=== PATIENT | female | born 1950 | race African-American/Black ===

== ENCOUNTER 2016-09-15 10:54 | Inpatient (IN) | payer BC, MEDICARE ==
[~2016-09-15] VITALS: Ht 162.6 cm; Wt 113.4 kg
[~2016-09-15 10:54] MED LIST: BAYER CHEWABLE81 MG PO; DIOVAN HCT 80-11 TAB PO; OMNICEF300 MG PO; PHENERGAN25 M1 PO; PHENERGAN25 MG RC; PREDNISONE; PROTONIX40 MG PO; ZOFRAN4 MG PO
[2016-09-15 11:28] LABS: BASOPHILS 0.1 % (0.0-2.0); EOSINOPHILS 0 % (0-7); HEMATOCRIT 40.4 % (36.0-48.0); HEMOGLOBIN 13.5 g/dL (12-16); IMMATURE GRANULOCYTES 0.6 % (0-5); LYMPHOCYTES 20.4 % (15-50); MCHC 33.4 g/dL (31.0-37.0); MCV 89.8 fL (80.0-100.0); MEAN PLATELET VOLUME 10.1 fL (7.4-10.4); MONOCYTES 5.2 % (2-11); NEUTROPHILS 73.7 % (40-80); PLATELET COUNT 243 10x3/uL (130-400); RDW 13.3 % (11.5-14.5); WBC 11.2 10x3/uL (4.8-10.8)
[2016-09-15 11:46] LABS: ALKALINE PHOSPHATASE 60 U/L (46-116); ALT (SGPT) 25 U/L (10-68); CALC OSMOLALITY 282 mosm/kg (275-300); CALCIUM 9.8 mg/dL (8.5-10.1); CARBON DIOXIDE 29.3 mmol/L (21.0-32.0); CHLORIDE - SERUM 103 mmol/L (98-107); CREATININE - SERUM 0.8 mg/dL (0.6-1.3); GLUCOSE 122 mg/dL (74-106); POTASSIUM - SERUM 3.7 mmol/L (3.5-5.1); PROTEIN - SERUM 8.9 g/dL (6.4-8.2); SODIUM 141 mmol/L (136-145); UREA NITROGEN 14 mg/dL (7-18); eGFR NON AFRICAN AMERICAN 76 mL/min (90-120)
[2016-09-15 14:59] LABS: APPEARANCE CLEAR (CLEAR); BILIRUBIN NEGATIVE (NEGATIVE); COLOR YELLOW (YELLOW); GLUCOSE NEGATIVE (NEGATIVE); KETONE NEGATIVE (NEGATIVE); LEUKOCYTE ESTERASE NEGATIVE (NEGATIVE); NITRITE NEGATIVE (NEGATIVE); PROTEIN 1+ mg/dL (NEGATIVE); SPECIFIC GRAVITY 1.025 (1.005-1.020); UROBILINOGEN NORMAL (NORMAL)
[2016-09-15] MEDS ORDERED: PREDNISONE10 MG PO (16:57)
[2016-09-15] MEDS ORDERED: DIOVAN80 MG PO (17:00)
[2016-09-15] MEDS ORDERED: HYDROCHLOROTHIA25 MG PO (17:00)
--- NOTE | 2016-09-15 19:40 | NUR ---
PATIENT RESTING IN BED WITH GUESTS AT BEDSIDE AND STATED HER PAIN IS 9/10. BROUGHT PATIENT AN ICEPACK. PATIENT DENIES OTHER NEEDS AT THIS TIME. BED IN LOWEST POSITION AND CALL LIGHT WITHIN REACH. ENCOURAGED PATIENT TO CALL IF SHE HAS OTHER NEEDS.
--- NOTE | 2016-09-15 20:18 | NUR ---
PATIENT IS LAYING ON HER LEFT SIDE. SHE STATED SHE FEELS BEST LAYING ON HER LEFT SIDE. PATIENT STATED SHE IS UNABLE TO LAY ON HER RIGHT SIDE. AND CAN HARDLY STAND TO LAY ON HER BACK. SHE HAS A VISIBLE HERNIA ON HER RIGHT SIDE OF HER ABD.
[2016-09-15 20:35] VITALS: BP 150/55; BMI 41.8
--- NOTE | 2016-09-15 20:44 | NUR ---
PATIENT IS AWAKE, ALERT AND ORIENTED X'S 4. RESPIRATIONS ARE EVEN AND UNLABORED ON ROOM AIR. PATIENT HAS AN NGT TO RIGHT NARE, HOOKED TO LIWS. THERE IS A SMALL AMOUNT OF PINK DRAINAGE IN THE CANESTER. PATIENT STATED SHE HAD ORAL CONTRAST TODAY. PATIENT STATED THAT ANOTHER NURSE AND HAS ALREADY LOOKED AT HER NGT AND ADVANCED IT. SHE STATED SHE HAS NOT HAD ANY EMESIS, ONLY NAUSEA. SHE STATED SHE IS NOT NAUSEOUS AT THIS TIME BECAUSE SHE HAS HAD ZOFRAN.
[2016-09-16] VITALS: BP 139/46
--- NOTE | 2016-09-16 01:54 | NUR ---
GAVE ZOFRAN IVP PER PRN ORDER FOR C/O NAUSEA. WILL MONITOR FOR EFFECTIVENESS.
[2016-09-16 04:00] VITALS: BP 148/51
--- NOTE | 2016-09-16 06:30 | HP ---
PATIENT: DONNIE BROWN MEDICAL RECORD: [id number] ACCOUNT: [id number] LOCATION:D.MS [id number] : 50 ADMISSION DATE: 09/15/16 HISTORY AND PHYSICAL EXAMINATION DATE OF ADMISSION: 09/15/2016 SURGEON: Martha Marks MD CHIEF COMPLAINT: Abdominal pain and vomiting. HISTORY OF PRESENT ILLNESS: This is a 65-year-old female, who presents with a 1 day history of acute onset of abdominal pain, nausea and vomiting. The patient states the pain is located around her umbilicus. It is sharp and stabbing in nature. The pain has been constant. It fluctuates in intensity. Currently, she is a 7 out of 10. She denies any hematemesis. She denies any fever or chills. Denies any melena or hematochezia. The patient has a history of colon cancer and resection several years ago. PAST MEDICAL HISTORY: Hypertension, coronary artery disease, DVT, reactive airway disease, acid reflux, and arthritis. PAST SURGICAL HISTORY: Colon resection, cholecystectomy, port placement, and cardiac catheterization. FAMILY HISTORY: Diabetes and cardiovascular disease in her parents. SOCIAL HISTORY: She denies any history of alcohol or drug use, denies any history of smoking. ALLERGIES: CONTRAST, SHELLFISH AND CLARITHROMYCIN. HOME MEDICATIONS: Include aspirin, hydrochlorothiazide, Protonix, prednisone and valsartan. REVIEW OF SYSTEMS: A 12-point review of systems was obtained, pertinent positive and negative as per the HPI. PHYSICAL EXAMINATION: VITAL SIGNS: Temperature 98.2, pulse rate 58, respiratory rate 18, blood pressure ____ on room air. GENERAL: This is an obese female, in moderate distress. PSYCHIATRIC: She is alert and oriented times 3 about. EYES: Extraocular muscles are intact. EAR, NOSE, AND THROAT: Normal dentition. CARDIOVASCULAR: She got decreased breath sounds bilaterally. ABDOMEN: Firm, it is moderately distended. She is tender to palpation at the umbilicus. There was a large hernia defect. It is nonreducible. There is no overlying skin changes. SKIN: Warm and dry with normal turgor. EXTREMITIES: She is neurovascularly intact with lower extremity edema. NEUROLOGIC: She has a GCS of 15 with no focal deficits. LABORATORY DATA: Shows a white count of 11,000, hemoglobin 13, hematocrit 40 and platelet count ____. Chemistry within normal limits. Liver function tests HISTORY AND PHYSICAL [id number] KEVIN,DONNIE within normal limits. IMAGING: Chest x-ray images were reviewed that shows the NG tube at the level of the GE junction. CT of the abdomen and pelvis images were personally reviewed. There is no official report. The patient has a large hernia with multiple loops of small bowel. The proximal small bowel was dilated. Distal small bowel was decompressed, consistent with bowel obstruction. IMPRESSION: A 65-year-old female with irreducible incisional hernia and small-bowel obstruction. PLAN: 1. Admit to med-surg, Dr. Marks. 2. IV fluid resuscitation. 3. N.p.o. 4. NG tube decompression. 5. Flynn catheter placement to monitor I's and O's. 6. Serial abdominal exams. IV narcotics for pain control, IV antiemetics. We will consult Dr. Vela, at the patient's request, who is her primary care physician. TRANSINT:[id number] Voice Confirmation ID: [id number] DOCUMENT ID: [id number] MARTHA MARKS MD at 0630 CC: [id number] DICTATION DATE: 09/15/162225 COMPLAINT INVESTIGATIONS OFFICER: 09/16/16 0015 ADM IN [id number] [place] [address]
--- NOTE | 2016-09-16 07:55 | NUR ---
PATIENT RECEIVED IN LEFT LATERAL POSITION RESTING QUIETLY. RESPIRATIONS EVEN AND UNLABORED. FAMILY PRESENT AT BEDSIDE. SIDE RAILS UP X2. BED IN LOW POSITION. CALL LIGHT IN REACH.
--- NOTE | 2016-09-16 08:20 | NUR ---
PT AWAKE AND ALERT IN BED NO ACUTE DISTRES NOTED HAS PAIN MGMT NOTED VIA MOTTLER OPERATOR MORPHINE WILL REQUEST BOLUS MEDS NEEDED. NGT NOTED TO LIS WITH GREEN LIQUID NOTED TO TUBING LUNGS CLEAR BIALTERALLY. BSA TO LEFT UPPER AND LOWER QUADS SILENT IN RIGHT UPPER AND LOWER QUADS.
[2016-09-16 08:47] VITALS: BP 156/73
--- NOTE | 2016-09-16 10:45 | NUR ---
PT PREOP MEDS GIVEN TO PT AND PT TRANSFERRED TO OR VIA BED WITH SURGERY TEAM.
[2016-09-16 12:41] VITALS: Ht 162.6 cm; Wt 113.4 kg
--- NOTE | 2016-09-16 13:13 | NUR ---
NO SCDS DUE TO HISTORY OF DVTS, AFIA.
--- NOTE | 2016-09-16 13:41 | NUR ---
Patient Name: DONNIE BROWN Admission Status: ER Accout number: [id number] Admission Date: 09-15-2016 : 1950 Admission Diagnosis: Attending: PARISH Current LOS: 1 Anticipated DC Date: 09-22-2016 Planned Disposition: Home with Home Health Primary Insurance: [employer] [facility] Discharge Planning Comments: CM MET WITH PATIENT WITH D/C NEEDS AND PLANS. PATIENT STATED SHE HAS 3 STEPS TO ENTER HER HOME. PATIENTS DAUGHTER (FRANCOIS VACA) LIVES WITH HER AND WILL DRIVE HER HOME AT DISCHARGE. PATIENT STATED SHE IS INDEPENDENT WITH HER CARE AND HAS A CANE, WALKER, SHOWER CHAIR, BS COMMODE, AND WHEELCHAIR THAT ARE AVAILABLE IF NEEDED. PATIENTS PCP IS DR. HERNÁNDEZ AND PHARMACY IS [facility] ON [address]. PATIENT STATED IF HOME HEALTH IS NEEDED SHE WILL USE [facility]. CM WILL CONTINUE TO FOLLOW PATIENT WITH D/C NEEDS AND PLANS. PCP DR. HERNÁNDEZ [facility] ON [address]- [phone] FRANCOIS VACA (DAUGHTER) [phone] ROSA MARIA BROWN (FATHER) [phone] Technical Services Representative: Denise Puente Is the patient Alert and Oriented? Yes 0 * How many steps to enter\exit or inside your home? 2 W/RAILS 0 * PCP DR. HERNÁNDEZ 0 * Pharmacy [facility] 0 * Preadmission Environment Home with Family 0 * ADLs Independent 0 * Equipment Bedside Commode Cane Shower Chair Walker Wheelchair 0 * List name and contact numbers for known caregivers / representatives who currently or will assist patient after discharge: FRANCOIS VACA ([phone]) ROSA MARIA BROWN (FATHER) [phone] 0 * Community resources currently utilized None 0 * Additional services required to return to the preadmission environment? Yes 0 * Can the patient safely return to the preadmission environment? Yes 0 * Has this patient been hospitalized within the prior 30 days at any hospital? No 0 Grand Total: 0
[2016-09-16 16:58] VITALS: BP 142/69
--- NOTE | 2016-09-16 17:20 | NUR ---
RECIEVED FROM PACU VIA BED AWAKE AND ALERT ORINETED X3 NGT INPLACE LAYNE PATENT TO CLEAR YELLOW URINE. ABDOMINAL BINDER IN PLACE DRESSING WITH MINIMAL DRAINAGE NOTED
[2016-09-16 20:00] VITALS: BP 129/63; BP 138/70
--- NOTE | 2016-09-16 20:22 | NUR ---
PT RECEIVED RESTING IN BED WITH EYES OPEN, FAMILY VISITORS AT BEDSIDE. LUNG SOUNDS CLEAR BILATERALLY. RESP EVEN AND UNLABORED. ABD BINDER IN PLACE. PT REFUSES SCD'S. LAYNE IN PLACE, CLEAR YELLOW RETURN. PT CURRENTLY NPO. PT DENIES NEEDS AT THIS TIME. CALL LIGHT IN PT REACH.
--- NOTE | 2016-09-16 22:29 | NUR ---
PT IS ASLEEP WITH EASY RESPIRATIONS. SHE HAS AN NG TUBE IN PLACE WHICH IS DRAINING GREEN BILE. THERE IS NO DISTRESS NOTED. THE FAMILY MEMBER IS ASLEEP AT THE BEDSIDE AND THE LIGHTS ARE OFF. THE BED IS LOW, RAILS UP X'S 2 WITH THE CALL LIGHT AT HAND.
--- NOTE | 2016-09-16 22:38 | NUR ---
PT RESTING IN BED WITH EYES CLOSED. PT CONTINUES TO REFUSED SCD'S. NO S/S OF DISTRES NOTED AT THIS TIME. RESP EVEN AND UNLABORED. CALL LIGHT IN PT REACH.
[2016-09-17] VITALS (9 sets, daily range): BP systolic 127–147; BP diastolic 62–85
--- NOTE | 2016-09-17 00:30 | NUR ---
PT RESTING IN BED WITH EYES CLOSED AT THIS TIME. NO S/S OF DISTRESS. RESP ARE EVEN AND UNLABORED. O2 IN PLACE @ 2L PER NC. PT FAMILY MEMBER AT BED SIDE ASLEEP. CALL LIGHT IN PT REACH.
--- NOTE | 2016-09-17 02:04 | NUR ---
PT RESTING IN BED WITH EYES CLOSED. NO S/S OF DISTRESS NOTED. RESP EVEN AND UNLABORED. FAMILY MEMBER AT BEDSIDE SLEEPING. PT REMAINS NPO, NG SUCTION IN PLACE. CALL LIGHT IN REACH.
--- NOTE | 2016-09-17 04:18 | NUR ---
PT RESTING IN BED WITH EYES CLOSED. NO S/S OF DISTRESS NOTED AT THIS TIME. RESP EVEN AND UNLABORED. PT AROUSES TO VERBAL STIMULI. DENIES NEEDS AT THIS TIME. CONTINUES WITH NG SUCTION. CALL LIGHT IN PT REACH.
[2016-09-17 05:07] LABS: BASOPHILS 0 % (0.0-2.0); EOSINOPHILS 0 % (0-7); HEMATOCRIT 37.9 % (36.0-48.0); HEMOGLOBIN 12.1 g/dL (12-16); IMMATURE GRANULOCYTES 0.4 % (0-5); LYMPHOCYTES 16.4 % (15-50); MCH 29.4 pg (26.0-34.0); MCHC 31.9 g/dL (31.0-37.0); MEAN PLATELET VOLUME 9.8 fL (7.4-10.4); MONOCYTES 10.1 % (2-11); NEUTROPHILS 73.1 % (40-80); PLATELET COUNT 204 10x3/uL (130-400); RBC 4.12 10x6/uL (4.00-5.40); RDW 13.9 % (11.5-14.5)
[2016-09-17 05:14] LABS: WBC 7.4 10x3/uL (4.8-10.8)
[2016-09-17 05:38] LABS: ANION GAP 10.8 mmol/L (8-16); CALCIUM 8.4 mg/dL (8.5-10.1); CARBON DIOXIDE 27.1 mmol/L (21.0-32.0); CREATININE - SERUM 0.9 mg/dL (0.6-1.3); MAGNESIUM - SERUM 1.9 mg/dL (1.8-2.4); PHOSPHOROUS 3.2 mg/dL (2.5-4.9); POTASSIUM - SERUM 3.9 mmol/L (3.5-5.1)
--- NOTE | 2016-09-17 07:15 | NUR ---
PATIENT IN BED WITH IV INTACT. NO COMPLAINTS OR SIGNS OF DISTRESS. CALL LIGHT WITHIN REACH.
--- NOTE | 2016-09-17 08:09 | NUR ---
RESTING IN BED, DENIES NEEDS, BED LOWEST POSITION, CALL LIGHT IN REACH, SIDE RAILS UP X2
--- NOTE | 2016-09-17 13:35 | CN ---
PATIENT NAME:DONNIE BROWN MEDICAL RECORD: [id number] : 50 LOCATION:D.MS [id number] ADMIT DATE: 09/15/16 ACCOUNT: [id number] CONSULTING PHYSICIAN: VENUS HERNÁNDEZ MD REFERRING PHYSICIAN: MARTHA MARKS MD DATE OF CONSULTATION: 09/16/2016 DATE OF ADMISSION: 09/15/2016 CHIEF COMPLAINT: Abdominal pain and vomiting. HISTORY OF PRESENT ILLNESS: This is a 65-year-old female, who presented with a 1-day history of acute onset of abdominal pain, nausea and vomiting. She has a remote history of colon resections due to cancer. She has had a ventral hernia that really has not given her any problems until now. CT of the abdomen and pelvis showed a large ventral hernia with multiple loops of small bowel. The patient was admitted to Dr. Marks and I have been asked to see the patient in consultation for medical management. PAST MEDICAL AND SURGICAL HISTORY: Hypertension, mild coronary artery disease, DVT, acid reflux, and arthritis. She has had cataract surgery in 2008, partial colectomy in February 2009 for stage III colon cancer. She had chemotherapy for that, followed by Dr. Sanchez. She has had a laparoscopic cholecystectomy in 1997. CURRENT MEDICATIONS: Hydrochlorothiazide 25 mg once a day, hydralazine 25 mg once a day, valsartan 80 mg once a day, Protonix 40 mg once a day, and aspirin 81 mg once a day. ALLERGIES: BIAXIN AND SHELLFISH. SOCIAL HISTORY: She is . 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 HABITS: Never smoked. Alcohol use is rare. FAMILY HISTORY: Father's history is positive for coronary artery disease. Her mother just recently at age 83. She had several medical problems including dementia, including hypertension, diabetes and has had cancer in the past. REVIEW OF SYSTEMS: GENERAL: No major weight changes. HEENT: No particular sinus or allergy problems. RESPIRATORY: She has had some mild reactive airways disease. GASTROINTESTINAL: Colon cancer as above. She was seen by Dr. Vázquez and had colonoscopies done regularly. GENITOURINARY: No significant problems there. MUSCULOSKELETAL: No significant problems there. NEUROLOGIC: No migraines. No seizure activity. PSYCHIATRIC: No depression or melancholia. PHYSICAL EXAMINATION: VITAL SIGNS: Temperature 98.4, pulse 88, respirations 17, and blood pressure 138/70. CONSULT REPORT [id number] DONNIE BROWN GENERAL: She is awake and alert. She is postop now. She has NG tube in place. HEENT: Grossly within normal limits, otherwise. NECK: Supple. HEART: Regular rate and rhythm without murmur. LUNGS: Clear. ABDOMEN: With dressing in place. EXTREMITIES: Trace if any edema. LABORATORY WORK: Done upon admission, her white count was 11,200, hemoglobin 13.5, and hematocrit 40. Basic metabolic panel is all normal. Liver functions were all normal. DIAGNOSTIC DATA: Chest x-ray showed nasogastric tube in place, no acute cardiopulmonary process is evident. CT of the abdomen and pelvis without IV contrast shows findings concerning for: 1. Partial small-bowel obstruction related to midline abdominal wall hernia, containing small loops of bowel. 2. Sclerotic focus in the right pubic ramus, that is nonspecific, may be due to a bone island or prior trauma. IMPRESSION: 1. Hypertension. 2. Ventral hernia with bowel obstruction, now status post hernia repair and takedown of adhesions. PLAN: 1. We will monitor her blood pressure and other medical problems. 2. We will continue postoperative care. Thank you for the consult. At some point, we need to consider a bone scan for the abnormality on the pelvis. Other tests and procedures as warranted. TRANSINT:[id number] Voice Confirmation ID: [id number] DOCUMENT ID: [id number] VENUS HERNÁNDEZ MD at 1335 CC: [id number] DICTATION DATE: 09/16/16 2348 GIN CLERK: 09/17/16 0243 ADM IN [id number] [place] [address]
--- NOTE | 2016-09-17 14:55 | NUR ---
LAYNE DC'D, TIP AND BALLOON INTACT, TOLERATED WELL, DENIES NEEDS
--- NOTE | 2016-09-17 20:00 | NUR ---
PT RECEIVED SITTING UP IN CHAIR IN ROOM. FAMILY MEMBER AT BEDSIDE. PT IS ALERT AND ORIENTED X4. PT CONTINUES WTIH NG TUBE ON INTERMITTENT SUCTION. LUNG SOUNDS CLEAR BILATERALLY. RESPIRATIONS ARE EVEN AND UNLABORED. ABD BINDER IN PLACE. PT STATES NO BM SINCE BEFORE HAVING SURGERY. PT STATES PAIN IS CONTROLLED AT THIS TIME. PT STATES, "I HAD A HEADACHE EARLIER BUT THE MORPHINE HELPED." PT CONTINUES TO BE NPO. CALL LIGHT IN REACH.
[2016-09-18] VITALS (9 sets, daily range): BP systolic 118–158; BP diastolic 62–72
--- NOTE | 2016-09-18 00:25 | NUR ---
PT RESTING IN CHAIR WITH EYES CLOSED. NO S/S OF DISTRESS NOTED. RESP EVEN AND UNLABORED. PT CONTINUES NPO. CALL LIGHT IN REACH.
--- NOTE | 2016-09-18 01:35 | NUR ---
AWAKE SITTING UP IN THE CHAIR. NG TUBE IN PLACE AND WORKING. FAMILY MEMBER ASLEEP IN HER BED. NO COMPLAINTS VOICED. THE BED IS LOW, RAILS UP X'S 2 WITH THE CALL LIGHT AT HAND.
--- NOTE | 2016-09-18 02:04 | NUR ---
PT UP IN CHAIR RESTING IN WITH EYES CLOSED. NO S/S OF DISTRESS NOTED. RESP EVEN AND UNLABORED. AROUSES TO VERBAL STIMULI. CONTINUES WITH NG INTERMITENT SUCTION. CALL LIGHT IN PT REACH.
[2016-09-18 07:25] LABS: BASOPHILS 0.1 % (0.0-2.0); HEMATOCRIT 34.2 % (36.0-48.0); HEMOGLOBIN 10.7 g/dL (12-16); IMMATURE GRANULOCYTES 0.3 % (0-5); LYMPHOCYTES 19.4 % (15-50); MCH 29.3 pg (26.0-34.0); MCHC 31.3 g/dL (31.0-37.0); MCV 93.7 fL (80.0-100.0); MEAN PLATELET VOLUME 10.3 fL (7.4-10.4); MONOCYTES 8.1 % (2-11); NEUTROPHILS 70.1 % (40-80); PLATELET COUNT 194 10x3/uL (130-400); RBC 3.65 10x6/uL (4.00-5.40); RDW 14.1 % (11.5-14.5); WBC 7.1 10x3/uL (4.8-10.8)
[2016-09-18 07:38] LABS: CALC OSMOLALITY 283 mosm/kg (275-300); CALCIUM 8.2 mg/dL (8.5-10.1); CARBON DIOXIDE 26.8 mmol/L (21.0-32.0); CHLORIDE - SERUM 109 mmol/L (98-107); CREATININE - SERUM 0.7 mg/dL (0.6-1.3); GLUCOSE 104 mg/dL (74-106); POTASSIUM - SERUM 3.7 mmol/L (3.5-5.1); SODIUM 142 mmol/L (136-145); UREA NITROGEN 16 mg/dL (7-18); eGFR NON AFRICAN AMERICAN 89 mL/min (90-120)
--- NOTE | 2016-09-18 10:15 | NUR ---
Awake sitting up in chair, NGT to intermittent suctions with yellowish colored drainage. Abd. binder in place. Report slight nausea when she ambulated with PT, was able to amb 200 feet, passing flatus. Pain is managed
--- NOTE | 2016-09-18 17:39 | NUR ---
Sitting in recliner, NGT to intermittent suction. Pain level 2. No compliants.
[2016-09-19] VITALS: BP 152/67
--- NOTE | 2016-09-19 01:12 | NUR ---
ASSESSED AT THE BEGINNING OF THE SHIFT. PT IS ALERT AND ORIENTED, ABLE TO VERBALIZE NEEDS. HER SISTER IS REMAINING IN THE ROOM WITH HER. SHAS AN NG-TUBE TO LIS AND IT IS FUNCTIONING WELL. HER DRESSING TO THE MIDLINE INCISION OF THE ABD IS DRY AND INTACT WITH AN ABD BINDER OVER IT. SITTING UP IN THE CHAIR SEEMS TO BE MORE COMFORTABLE FOR HER. SHE WAS ASSISTED BY HER SISTER TO A WASH UP AND STATED IT MADE HER FEEL BETTER. HER CHAIR IS LOCKED AND SHE HAS THE CALL LIGHT AT HAND.
[2016-09-19 04:00] VITALS: BP 145/68
[2016-09-19 06:58] LABS: BASOPHILS 0.2 % (0.0-2.0); EOSINOPHILS 3.9 % (0-7); HEMATOCRIT 32.8 % (36.0-48.0); HEMOGLOBIN 10.4 g/dL (12-16); IMMATURE GRANULOCYTES 0.3 % (0-5); LYMPHOCYTES 25.9 % (15-50); MCH 29.5 pg (26.0-34.0); MCHC 31.7 g/dL (31.0-37.0); MCV 92.9 fL (80.0-100.0); MONOCYTES 7.8 % (2-11); NEUTROPHILS 61.9 % (40-80); PLATELET COUNT 178 10x3/uL (130-400); RBC 3.53 10x6/uL (4.00-5.40); RDW 13.9 % (11.5-14.5); WBC 5.9 10x3/uL (4.8-10.8)
--- NOTE | 2016-09-19 07:00 | NUR ---
REPORT RECIEVED ASSUMED CARE. PATIENT STANDING UP AT SINK CLEANING UP. FAMILY AT SIDE. CALL LIGHT WITHIN REACH.
[2016-09-19 07:20] LABS: CALC OSMOLALITY 287 mosm/kg (275-300); CALCIUM 8.1 mg/dL (8.5-10.1); CARBON DIOXIDE 27.5 mmol/L (21.0-32.0); CHLORIDE - SERUM 109 mmol/L (98-107); CREATININE - SERUM 0.7 mg/dL (0.6-1.3); GLUCOSE 118 mg/dL (74-106); MAGNESIUM - SERUM 2.3 mg/dL (1.8-2.4); PHOSPHOROUS 2.8 mg/dL (2.5-4.9); POTASSIUM - SERUM 3.6 mmol/L (3.5-5.1); SODIUM 144 mmol/L (136-145); UREA NITROGEN 13 mg/dL (7-18); eGFR NON AFRICAN AMERICAN 89 mL/min (90-120)
[2016-09-19 09:00] VITALS: BP 150/66
--- NOTE | 2016-09-19 10:50 | NUR ---
PATIENT UP AMBULATING AT THIS TIME WITH NO PROBLEMS. CALL LIGHT WITHIN REACH.
--- NOTE | 2016-09-19 15:00 | NUR ---
PATIENT SITTING UP IN CHAIR RESTING QUIETLY. IV INTACT. NGT INTACT. CALL LIGHT WITHIN REACH.
[2016-09-19 16:34] VITALS: BP 147/67
--- NOTE | 2016-09-19 17:30 | NUR ---
SPOKE WITH [employer] ABOUT GETTING PATIENT AN EGGCRATE TO SLEEP ON. SHE STATED SHE WOULD TRY TO GET HER ONE.
--- NOTE | 2016-09-19 18:50 | NUR ---
PATIENT IN ROOM WITH IV INTACT. NO COMPLAINTS. NGT TO LIWS. FAMILY AT BEDSIDE. CALL LIGHT WITHIN REACH.
--- NOTE | 2016-09-19 18:51 | NUR ---
PATIENT IN BED WITH IV INTACT. NO COMPLAINTS AT THIS TIME. SITTING UP IN CHAIR. NGT TO LIWS. FAMILY AT BEDSIDE. CALL LIGHT WITHIN REACH.
--- NOTE | 2016-09-19 22:20 | NUR ---
PATIENT SITTING UP IN CHAIR. STATES SHE WILL SLEEP THERE BECAUSE BEDS IS UNCOMFORTABLE. REQUESTED EGG CRATE FOR MATTERESS FROM EVS ATTENDANT AND AWAITING FOR HER TO BRING IT UP. SCHEDULED MEDS GIVEN. ASSESSMENT COMPLETED. NO SIGNS OF DISTRESS NOTES AT THIS TIME. BED LOW. CALL LIGHT IN REACH.
[2016-09-19 23:13] VITALS: BP 158/75
--- NOTE | 2016-09-20 03:00 | NUR ---
PT IN BED WITH NO DISTRESS. RESPIRATIONS EVEN AND UNLABORED. SIDE RAILS X 2. BED LOW. CALL LIGHT IN REACH.
[2016-09-20 04:00] VITALS: BP 144/76
[2016-09-20 05:30] LABS: BASOPHILS 0.2 % (0.0-2.0); EOSINOPHILS 4.8 % (0-7); HEMATOCRIT 33.7 % (36.0-48.0); HEMOGLOBIN 10.7 g/dL (12-16); IMMATURE GRANULOCYTES 0.3 % (0-5); LYMPHOCYTES 34.5 % (15-50); MCH 29.1 pg (26.0-34.0); MCHC 31.8 g/dL (31.0-37.0); MCV 91.6 fL (80.0-100.0); MEAN PLATELET VOLUME 10.3 fL (7.4-10.4); MONOCYTES 6.6 % (2-11); NEUTROPHILS 53.6 % (40-80); RBC 3.68 10x6/uL (4.00-5.40); RDW 13.5 % (11.5-14.5); WBC 6.2 10x3/uL (4.8-10.8)
[2016-09-20 05:32] LABS: PLATELET COUNT 215 10x3/uL (130-400)
[2016-09-20 05:54] LABS: CALC OSMOLALITY 281 mosm/kg (275-300); CALCIUM 8.7 mg/dL (8.5-10.1); CARBON DIOXIDE 25.1 mmol/L (21.0-32.0); CHLORIDE - SERUM 106 mmol/L (98-107); CREATININE - SERUM 0.6 mg/dL (0.6-1.3); GLUCOSE 126 mg/dL (74-106); POTASSIUM - SERUM 3.4 mmol/L (3.5-5.1); SODIUM 141 mmol/L (136-145); UREA NITROGEN 10 mg/dL (7-18); eGFR NON AFRICAN AMERICAN > 90 mL/min (90-120)
--- NOTE | 2016-09-20 08:36 | NUR ---
PT. AOX4 RESP EVEN AND NONLABORED PT DENIES NEEDS AT THIS TIME. BED AT LOWEST SETTING CALL LIGHT WITHIN REACH. IV TO RIGHT WRIST PATENT AND INTACT WILL CONTINUE TO MONITOR
[2016-09-20 08:37] VITALS: BP 147/61
--- NOTE | 2016-09-20 11:19 | NUR ---
CM REASSESSMENT NOTE: PATIENT SIGNED THE [place] [facility]M WITH [facility] IF NEEDED.
[2016-09-20 12:12] VITALS: BP 154/63
--- NOTE | 2016-09-20 15:22 | NUR ---
NUTRITION MONITORING & EVAL CHART REVIEWED, PT VISIT. S/P VHR. REMAINS NPO AT THIS TIME. WILL CONTINUE TO MONITOR DIET ADVANCEMENT. RD FOLLOWING
[2016-09-20 16:58] VITALS: BP 144/83
[2016-09-20 20:00] VITALS: BP 137/72
--- NOTE | 2016-09-20 21:25 | NUR ---
PATIENT SITTING UP IN RECLINER. AMBULATED UNIT 2X SINCE SHIFT CHANGE. NO SIGNS OF DISTRESS NOTED AT THIS TIME. DENIES ANY NEEDS. SCHEDULED MEDS GIVEN. ASSESSMENT COMPLETED. SISTER PRESENT. CALL LIGHT WITHIN REACH
[2016-09-21 04:00] VITALS: BP 158/75
[2016-09-21 06:38] LABS: BASOPHILS 0.3 % (0.0-2.0); EOSINOPHILS 4.6 % (0-7); HEMATOCRIT 33.4 % (36.0-48.0); HEMOGLOBIN 10.7 g/dL (12-16); IMMATURE GRANULOCYTES 0.9 % (0-5); MCH 29.3 pg (26.0-34.0); MCV 91.5 fL (80.0-100.0); MEAN PLATELET VOLUME 9.9 fL (7.4-10.4); MONOCYTES 7.7 % (2-11); NEUTROPHILS 60.5 % (40-80); PLATELET COUNT 213 10x3/uL (130-400); RBC 3.65 10x6/uL (4.00-5.40); RDW 13.4 % (11.5-14.5); WBC 6.9 10x3/uL (4.8-10.8)
[2016-09-21 07:01] LABS: CALC OSMOLALITY 270 mosm/kg (275-300); CALCIUM 8.6 mg/dL (8.5-10.1); CARBON DIOXIDE 25.6 mmol/L (21.0-32.0); CHLORIDE - SERUM 103 mmol/L (98-107); CREATININE - SERUM 0.7 mg/dL (0.6-1.3); GLUCOSE 122 mg/dL (74-106); MAGNESIUM - SERUM 2.1 mg/dL (1.8-2.4); PHOSPHOROUS 2.9 mg/dL (2.5-4.9); POTASSIUM - SERUM 3.8 mmol/L (3.5-5.1); SODIUM 136 mmol/L (136-145); eGFR NON AFRICAN AMERICAN 89 mL/min (90-120)
[2016-09-21 07:02] LABS: UREA NITROGEN 7 mg/dL (7-18)
--- NOTE | 2016-09-21 07:36 | NUR ---
PT. AOX4 RESP EVEN AND NONLABORED LUNG SOUNDS CLEAR PT STATES A SMALL BOWEL MOVEMENT EARLY THIS MORNING. DENIES NEEDS AT THIS TIME. IV IN RIGHT ARM BURNING IV INFUSION STOPPED AND WILL RECITE BED AT LOWEST SETTING CALL LIGHT WITH IN REACH
[2016-09-21 08:20] VITALS: BP 134/66
--- NOTE | 2016-09-21 09:09 | NUR ---
AWAKE AND ALERT.ORIENTED X3. NO C/O AT THIS TIME. LUNGS ARE CLEAR BILATERALLY, NO COUGH NOTED. SKIN IS INTACT WITHOUT REDNESS. IV TO RIGHT WRIST LEAKING, D/C WITH CATHETER INTACT. RESITED TO LEFT FOREARM WITH 20G AFTER ONE ATTEMPT. DR. STONE HERE D/C NG TUBE WITHOUT DIFFICULTY. BOWEL SOUNDS ARE STILL HYPOACTIVE. PATIENT REPORTS 2 SMALL BM'S YESTERDAY LATE. INCISION TO MID ABDOMEN WITH CLEAN DRY DRESSING IN PLACE. ABDOMINAL BINDER IN PLACE WELL.
--- NOTE | 2016-09-21 10:30 | NUR ---
SITTING UP IN CHAIR AT BEDSIDE SIPPING ON COFFEE AND WATER. NO NAUSEA WITH INTAKE.
[2016-09-21 12:30] VITALS: BP 166/68
--- NOTE | 2016-09-21 14:19 | NUR ---
ATE MOST OF CLEAR LIQUID LUNCH WITHOUT ANY NAUSEA OF PAIN. WILL CONTINUE TO MONITOR.
--- NOTE | 2016-09-21 16:25 | NUR ---
C/O SOME NAUSEA. GIVEN 4MG ZOFRAN SLOW IVP FOR SAME. WILL MONITOR. HAD LARGE LIQUID STOOL. SKIN CARE PER SELF.
[2016-09-21 16:36] VITALS: BP 162/63
--- NOTE | 2016-09-21 18:43 | NUR ---
SITTING UP IN CHAIR AT BEDSIDE. SIPPING ON ENSURE. NO CHANGES NOTED. DENIES NEEDS.
[2016-09-21 20:00] VITALS: BP 151/61
--- NOTE | 2016-09-21 20:50 | NUR ---
PATIENT RESTING IN RECLINER. NO SIGNS OF DISTRESS NOTED. REPORTS 2 BOWEL MOVEMENTS SINCE SHIFT CHANGE. SCHEDULED MEDS GIVEN. ASSESSMENT COMPLETED. DENIES ANY NEEDS AT THIS TIME. BED LOW. CALL LIGHT IN REACH
--- NOTE | 2016-09-22 02:00 | NUR ---
PT IN BED WITH NO DISTRESS. RESPIRATIONS EVEN AND UNLABORED. SIDE RAILS X 2. BED LOW. CALL LIGHT IN REACH.
[2016-09-22 04:00] VITALS: BP 131/69
--- NOTE | 2016-09-22 07:00 | NUR ---
REPORT RECIEVED ASSUMED CARE. PATIENT IN BED WITH IV INTACT. CALL LIGHT WITHIN REACH.
[2016-09-22 08:40] VITALS: BP 124/68
[2016-09-22 13:31] VITALS: BP 146/51
[2016-09-22 17:19] VITALS: BP 140/57
[2016-09-22] MEDS ORDERED: VITAMIN A10000 UNIT PO (18:24)
[2016-09-22] MEDS ORDERED: HYDROCODONE-APA1 TAB PO (18:24)
--- NOTE | 2016-09-22 18:45 | NUR ---
PATIENT SITTING UP IN CHAIR WITH NO COMPLAINTS. AWAITING DC. FAMILY AT BEDSIDE. CALL LIGHT WITHIN REACH.
--- NOTE | 2016-09-22 20:00 | NUR ---
DISCHARGE INSTRUCTIONS AND PRESCRIPTION FOR PAIN MEDS GIVEN. PT SIGNED PAPER STATING ALL D/C INSTRUCTIONS UNDERSTOOD. GAVE NORCO 10 PO PER REQUEST FOR PAIN CONTROL ON RIDE HOME.
--- NOTE | 2016-09-22 20:26 | NUR ---
PT ESCORTED TO FRONT ENTRANCE VIA WHEELCHAIR WITH FAMILY MEMBERS.
--- NOTE | 2016-10-08 13:21 | OP ---
PATIENT NAME: DONNIE BROWN MEDICAL RECORD: [id number] :50 LOCATION:D.MS [id number] ADMISSION DATE:09/15/16 SURGEON: HERB STONE MD DATE OF OPERATION: 09/16/2016 PREOPERATIVE DIAGNOSES: 1. Ventral incisional hernia. 2. Hypertension. 3. Coronary artery disease. 4. Reactive airway disease. 5. Gastroesophageal reflux disease. 6. History of deep venous thrombosis. POSTOPERATIVE DIAGNOSES: 1. Ventral incisional hernia. 2. Hypertension. 3. Coronary artery disease. 4. Reactive airway disease. 5. Gastroesophageal reflux disease. 6. History of deep venous thrombosis. PROCEDURES: 1. Ventral hernia repair with 10 x 15 cm Ventrio hernia patch. 2. Lysis of adhesions times 60 minutes. SURGEON: Herb Stone MD REPORT OF PROCEDURE: The patient's abdomen was prepped and draped in sterile fashion. A midline incision was performed going around the umbilicus. Electrocautery was used to dissect through subcutaneous tissues. We encountered the hernia sac. We entered the hernia sac and saw there was bowel contents present within it. As we opened up the hernia sac, we did a tedious dissection of the bowel off the anterior abdominal wall. We were eventually able to get the bowel completely off of the hernia sac. Once we did this, then we were able to continue our dissection of the adhesed bowel to the anterior abdominal wall. This took a total of 60 minutes and eventually we were able to get all of the small bowel off of the anterior abdominal wall. Once we had the wall freed up, then we were able to free up the anterior aspect of the patient's fascia. The fascial defect was 14 cm x 10 cm. Once the fascia was completely cleared off, then a 10 x 15 cm Ventrio hernia patch was inserted, it was sutured down on all sides using multiple interrupted 0 Prolenes. The mesh rested in good position. Care was taken to make sure the bowel was not injured during this portion of the procedure. The wound was then irrigated out thoroughly with normal saline. The midline fascia was then closed over top of the mesh using running #1 loop PDS times 2. The umbilicus was then tacked down with a single interrupted 3-0 Vicryl. The subcutaneous tissues were reapproximated with multiple interrupted 3-0 Vicryls and the skin was closed with allie. COMPLICATIONS: None. CONDITION: Stable. ANESTHESIA: General endotracheal. BLOOD LOSS: 200 mL. OPERATIVE REPORT [id number] KEVINDONNIE TRANSINT:[id number] Voice Confirmation ID: [id number] DOCUMENT ID: [id number] HERB STONE MD at 1321 CC: [id number] DICTATION DATE: 09/16/16 1609 PLASTIC CUTTER: 09/16/16 194 DIS IN 09/22/16 [place] [id number] [place] [id number]
--- NOTE | 2016-11-09 14:51 | DS ---
PATIENT:EPHRAIM BROWNA :50 MEDICAL RECORD: [id number] DISCHARGE SUMMARY ADMISSION DATE: 09/15/16 DISCHARGE DATE: 09/22/16 DATE OF ADMISSION: 09/15/2016. DATE OF DISCHARGE: 09/22/2016. ADMISSION DIAGNOSES: 1. Ventral hernia. 2. Small-bowel obstruction. 3. Hypertension. 4. Coronary artery disease. 5. Reactive airway disease. 6. Gastroesophageal reflux disease. 7. Arthritis. 8. History of deep venous thrombosis. DISCHARGE DIAGNOSES: 1. Ventral hernia. 2. Small-bowel obstruction. 3. Hypertension. 4. Coronary artery disease. 5. Reactive airway disease. 6. Gastroesophageal reflux disease. 7. Arthritis. 8. History of deep venous thrombosis. PROCEDURE: Ventral hernia repair with mesh on 09/16/2016. CONSULTATIONS: Family practice with Dr. Vela. REPORT OF HOSPITALIZATION: The patient was admitted to the hospital with abdominal pain and nausea and a CT finding consistent with partial small-bowel obstruction secondary to a large lower abdominal hernia. The patient known about this hernia for quite some time. The patient was initially set up with an NG tube and was admitted to Dr. Espinoza. She was then transferred over to care and she was taken to the operating room the following day where she underwent a hernia repair with mesh. The patient did well postoperatively with somewhat of a long ileus. Once this ileus resolved, the patient was tolerating diet regularly, was ambulating and her incision appeared to be healing well. Her pain was well controlled and she was felt to be stable for discharge home. DISCHARGE INSTRUCTIONS: She will return to clinic or call with any questions or concerns, fevers, chills, nausea, vomiting or worsening abdominal pain. ACTIVITIES: No heavy lifting or straining for 6-8 weeks. DISCHARGE MEDICATIONS: Resume home medications with the inclusion of [place] 10 and Vitamin A 10,000 units daily. TRANSINT:[id number] Voice Confirmation ID: [id number] DOCUMENT ID: [id number] DISCHARGE SUMMARY REPORT [id number] DONNIE BROWN CHRISTIAN MD at 1451 CC: [id number] DICTATION DATE: 10/15/16 1253 MERCURY WASHER: 10/16/16 0239 DIS IN 09/22/16 [place] [id number]
== END 2016-09-22 20:20 | disposition home or self-care (01) | DRG 336 ==
LOC: D.ER 10:54 → D.MS 15:28
PROVIDERS: Emergency Medicine; Surgery; ADMIT Surgery
PROC: 0WUF0JZ Supplement Abdominal Wall with Synthetic Substitute, Open Approach (ICD-10-PCS; principal; 2016-09-15)
PROC: 0DNE0ZZ Release Large Intestine, Open Approach (ICD-10-PCS; 2016-09-15)
DX: K43.6 Other and unspecified ventral hernia with obstruction, without gangrene (principal); K91.3 Postprocedural intestinal obstruction; I10 Essential (primary) hypertension; Y83.8 Other surgical procedures as the cause of abnormal reaction of the patient, or of later complication, without mention of misadventure at the time of the procedure

== ENCOUNTER 2016-09-30 12:57 | Emergency (ER) | payer BC, MEDICARE ==
[2016-09-16 12:41] VITALS: BMI 41.7
[~2016-09-30 12:57] MED LIST changes: +DIOVAN80 MG PO; +HYDROCHLOROTHIA25 MG PO; +HYDROCODONE-APA1 TAB PO; +PREDNISONE10 MG PO; +VITAMIN A10000 UNIT PO
== END 2016-09-30 14:07 | disposition home or self-care (01) ==
LOC: D.ER 12:57
DX: T81.31XA Disruption of external operation (surgical) wound, not elsewhere classified, initial encounter (principal)

== ENCOUNTER 2016-10-02 11:38 | Emergency (ER) | payer BC, MEDICARE ==
[2016-09-16 12:41] VITALS: BMI 41.7
== END 2016-10-02 14:37 | disposition home or self-care (01) ==
LOC: D.ER 11:38
DX: L03.311 Cellulitis of abdominal wall (principal); Z48.00 Encounter for change or removal of nonsurgical wound dressing

== ENCOUNTER → 2017-02-04 07:31 | Outpatient (CLI) | payer BC, MEDICARE ==
[2016-09-16 12:41] VITALS: BMI 41.7
== END | disposition home or self-care (01) ==
LOC: D.CT 02-03 08:30
DX: R19.00 Intra-abdominal and pelvic swelling, mass and lump, unspecified site (principal)

== ENCOUNTER → 2017-02-17 12:16 | Outpatient (CLI) | payer BC, MEDICARE ==
[2016-09-16 12:41] VITALS: BMI 41.7
== END | disposition home or self-care (01) ==
LOC: D.CT 12:16
DX: R19.00 Intra-abdominal and pelvic swelling, mass and lump, unspecified site (principal)

== ENCOUNTER 2017-06-13 11:00 | Day surgery (SDC) | payer BC, MEDICARE ==
[~2017-06-13] VITALS: Ht 162.6 cm; Wt 106.8 kg
[2017-06-13 12:43] LABS: BASOPHILS 0.4 % (0-2); EOSINOPHILS 0.4 % (0-7); HEMATOCRIT 36.1 % (36.0-48.0); HEMOGLOBIN 11.9 g/dL (12-16); IMMATURE GRANULOCYTES 0.2 % (0-5); LYMPHOCYTES 32.8 % (15-50); MEAN PLATELET VOLUME 9.8 fL (7.4-10.4); MONOCYTES 10.5 % (2-11); NEUTROPHILS 55.7 % (40-80); RDW 14.3 % (11.5-14.5); WBC 5.3 10x3/uL (4.8-10.8)
[2017-06-13 12:48] LABS: PLATELET COUNT 276 10x3/uL (130-400)
[2017-06-13 13:12] LABS: CALC OSMOLALITY 271 mosm/kg (275-300); CALCIUM 9.2 mg/dL (8.5-10.1); CARBON DIOXIDE 27.7 mmol/L (21.0-32.0); CHLORIDE - SERUM 100 mmol/L (98-107); CREATININE - SERUM 0.7 mg/dL (0.6-1.3); GLUCOSE 102 mg/dL (74-106); POTASSIUM - SERUM 3.4 mmol/L (3.5-5.1); SODIUM 137 mmol/L (136-145); UREA NITROGEN 8 mg/dL (7-18); eGFR NON AFRICAN AMERICAN 89 mL/min (90-120)
[2017-06-13 13:40] VITALS: BP 135/68; Ht 162.6 cm; Wt 106.8 kg
--- NOTE | 2017-06-13 15:25 | NUR ---
PT REC'D TO ROOM VIA STRETCHER. AWAKE, ALERT, ORIENTED.
--- NOTE | 2017-06-13 15:40 | NUR ---
FULL LIQ DIET PROVIDED AND TOLERATED.
--- NOTE | 2017-06-13 15:55 | NUR ---
PT STATES PASSING GAS. NO NEEDS.
--- NOTE | 2017-06-13 16:10 | NUR ---
D/C INSTRUCTIONS EXPLAINED TO PT. VOICED UNDERSTANDING. COPIES OF ALL GIVEN.
--- NOTE | 2017-06-13 16:15 | NUR ---
D/C'D HOME VIA W/C TO PRIVATE CAR.
--- NOTE | 2017-06-14 11:34 | OP ---
PATIENT NAME: DONNIE BROWN MEDICAL RECORD: [id number] :50 LOCATION:DEdilbertoOPS ADMISSION DATE: SURGEON: YRIS HUANG DO DATE OF OPERATION: 06/13/2017 PROCEDURE: Colonoscopy with polypectomy. INDICATIONS FOR PROCEDURE: Personal history of colon polyps as well as a personal history of adenocarcinoma of the colon, status post resection and chemotherapy. SCOPE: Olympus video pediatric colonoscope. MEDICATIONS: Propofol 400 mg IV per anesthesia. ESTIMATED BLOOD LOSS: Minimal. COMPLICATIONS: None. FINDINGS: Informed consent was given. The patient was made comfortable with the above medication. After reaching an adequate level of sedation by slow IV push, the patient was placed on her left side. A digital rectal examination was performed and was normal. The endoscope was then advanced under direct visualization through the rectum to the ileocolonic anastomosis. The anastomosis itself appeared patent and healthy without ulcerations or other abnormalities. The terminal ileum was intubated and looked normal. The endoscope was then slowly withdrawn and mucosa was carefully examined. The prep quality was excellent. There was evidence of very mild pandiverticulosis without diverticulitis. There were 3 polyps visualized on today's examination. All were benign appearing and sessile. They ranged in size from 3 to 6 mm in size. All were removed using hot forceps in 1 piece and completely retrieved. The first polyp was located in the transverse colon. The second polyp was located in the descending colon, and the third polyp was located in the sigmoid colon. Retroflexion was performed in the rectum with a normal appearing rectal wall. The endoscope was then withdrawn from the patient. The patient tolerated the procedure well and there were no complications. IMPRESSION: 1. Mild pandiverticulosis. 2. Prior intervention in the form of a right hemicolectomy within an ileocolonic anastomosis. 3. Three benign appearing sessile polyps as described above, removed using hot forceps. PLAN AND RECOMMENDATIONS: 1. Discharge home when recovery parameters are met. 2. High fiber diet. 3. Continue current medications. 4. Recall colonoscopy in 1-2 years for continued surveillance in the setting of a personal history of polyps as well as personal history of colon cancer. TRANSINT:[id number] Voice Confirmation ID: [id number] DOCUMENT ID: [id number] OPERATIVE REPORT [id number] DONNIE BROWNYRIS PARKS DO at 1134 CC: [id number] DICTATION DATE: 06/13/17 1516 [employer]: 06/13/17 1557 [facility] 06/13/17 [place] [address] [place] [address]
== END 2017-06-13 16:15 | disposition home or self-care (01) ==
LOC: D.OPS 11:00
PROVIDERS: Anesthesiology
DX: K63.5 Polyp of colon (principal); Z85.038 Personal history of other malignant neoplasm of large intestine; K57.30 Diverticulosis of large intestine without perforation or abscess without bleeding; I10 Essential (primary) hypertension; K21.9 Gastro-esophageal reflux disease without esophagitis; E66.01 Morbid (severe) obesity due to excess calories; Z68.41 Body mass index [BMI] 40.0-44.9, adult; Z01.812 Encounter for preprocedural laboratory examination

== ENCOUNTER → 2017-07-25 09:43 | Outpatient (CLI) | payer BC, MEDICARE ==
[2017-06-13 13:40] VITALS: BMI 40.4
[~2017-07-25 09:43] MED LIST changes: +ALPHAGAN 0.2%5 ML EACH EYE; +FUROSEMIDE20 MG PO
== END | disposition home or self-care (01) ==
LOC: D.CT 09:43
DX: L76.34 Postprocedural seroma of skin and subcutaneous tissue following other procedure (principal)

== ENCOUNTER 2017-08-15 07:40 | Day surgery (SDC) | payer BC, MEDICARE ==
[~2017-08-15] VITALS: Ht 162.6 cm; Wt 109.1 kg
--- NOTE | ~2017-08-15 | OP ---
PATIENT NAME: DONNIE BROWN MEDICAL RECORD: [id number] :50 LOCATION:D.OPS ADMISSION DATE: SURGEON: YRIS HUANG DO DATE OF OPERATION: 08/15/2017 PROCEDURE: EGD with biopsies. 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 SCOPE: Olympus video gastroscope. MEDICATIONS: Propofol 250 mg IV per anesthesia. ESTIMATED BLOOD LOSS: Minimal. COMPLICATIONS: None. FINDINGS: Informed consent was given. The patient was made comfortable with the above medication. After reaching an adequate level of sedation by slow IV push, the patient was placed on her left side. The endoscope was advanced under direct visualization through the mouth to the second portion of the duodenum. The upper, middle, and lower thirds of the esophagus appeared normal. At the GE junction, there was evidence of short segment Fregoso's mucosa without nodularity or dysplastic changes visible. Narrow-band imaging was used to look for further changes and this appeared normal as well. Multiple cold forceps biopsies were taken of the site to rule out any dysplasia microscopically. The endoscope was advanced beyond the GE junction into the stomach and retroflexed to view the cardia and fundus, which appeared normal. The body of the stomach as well as the antrum also appeared normal. The endoscope was advanced beyond the pylorus into the small bowel where the exam and portions of the duodenum all appeared normal. The scope was then withdrawn back into the stomach and random biopsies were taken with cold forceps to submit for histopathology and to rule out H pylori. The endoscope was then completely withdrawn from the patient. The patient tolerated the procedure well and there were no complications. IMPRESSION: 1. 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 Multiple biopsies were taken with cold forceps. 2. Otherwise, normal upper endoscopy with random biopsies taken of the stomach to rule out Helicobacter pylori. PLAN AND RECOMMENDATIONS: 1. Discharge home when recovery parameters are met. 2. Follow up biopsy specimen results. 3. Continue GERD diet and reflux precautions. 4. Continue current medications. 5. Repeat upper endoscopy in 2 years if biopsies are all benign to provide further surveillance of Fregoso's esophagus without dysplasia. TRANSINT:[id number] Voice Confirmation ID: [id number] DOCUMENT ID: [id number] OPERATIVE REPORT [id number] DONNIE BROWNYRIS DO CC: [id number] DICTATION DATE: 08/15/17 0955 CAN INTAKE WORKER: 08/15/17 1134 [facility] 08/15/17 [facility] [address] [place] [id number]
[~2017-08-15 07:40] MED LIST changes: -ALPHAGAN 0.2%5 ML EACH EYE; -FUROSEMIDE20 MG PO
[2017-08-15 08:05] LABS: BASOPHILS 0.2 % (0-2); EOSINOPHILS 1.7 % (0-7); HEMATOCRIT 38.2 % (36.0-48.0); HEMOGLOBIN 12.5 g/dL (12-16); IMMATURE GRANULOCYTES 0.2 % (0-5); LYMPHOCYTES 40.4 % (15-50); MCH 29.3 pg (26.0-34.0); MCHC 32.7 g/dL (31.0-37.0); MCV 89.7 fL (80.0-100.0); MEAN PLATELET VOLUME 9.9 fL (7.4-10.4); MONOCYTES 6.3 % (2-11); NEUTROPHILS 51.2 % (40-80); PLATELET COUNT 231 10x3/uL (130-400); RBC 4.26 10x6/uL (4.00-5.40); WBC 4.8 10x3/uL (4.8-10.8)
[2017-08-15 08:12] LABS: APTT 33.7 SECONDS (22.8-39.4); INR 1.09 (0.85-1.17); PROTIME 13.7 SECONDS (11.6-15.0)
[2017-08-15 08:19] LABS: CALC OSMOLALITY 284 mosm/kg (275-300); CALCIUM 9.2 mg/dL (8.5-10.1); CARBON DIOXIDE 25.3 mmol/L (21.0-32.0); CHLORIDE - SERUM 105 mmol/L (98-107); CREATININE - SERUM 0.7 mg/dL (0.6-1.3); GLUCOSE 105 mg/dL (74-106); POTASSIUM - SERUM 3.9 mmol/L (3.5-5.1); SODIUM 143 mmol/L (136-145); UREA NITROGEN 12 mg/dL (7-18); eGFR NON AFRICAN AMERICAN 89 mL/min (90-120)
[2017-08-15] MEDS ORDERED: FUROSEMIDE20 MG PO (08:19)
[2017-08-15] MEDS ORDERED: ALPHAGAN 0.2%5 ML EACH EYE (08:22)
[2017-08-15 08:29] VITALS: BP 164/81; Ht 162.6 cm; Wt 109.1 kg
== END 2017-08-15 10:50 | disposition home or self-care (01) ==
LOC: D.OPS 07:40
PROVIDERS: Anesthesiology
DX: K22.70 Barrett's esophagus without dysplasia (principal); Z01.812 Encounter for preprocedural laboratory examination

== ENCOUNTER 2017-10-09 12:43 | Emergency (ER) | payer BC, MEDICARE ==
[2017-08-15 08:29] VITALS: BMI 41.3
[~2017-10-09 12:43] MED LIST changes: +ALPHAGAN 0.2%5 ML EACH EYE; +FUROSEMIDE20 MG PO
[2017-10-09 13:17] LABS: BASOPHILS 0.3 % (0-2); EOSINOPHILS 0.3 % (0-7); HEMATOCRIT 40.3 % (36.0-48.0); HEMOGLOBIN 13.3 g/dL (12-16); IMMATURE GRANULOCYTES 0.1 % (0-5); LYMPHOCYTES 30.9 % (15-50); MCH 29.6 pg (26.0-34.0); MCV 89.8 fL (80.0-100.0); MEAN PLATELET VOLUME 9.9 fL (7.4-10.4); MONOCYTES 6.7 % (2-11); NEUTROPHILS 61.7 % (40-80); PLATELET COUNT 242 10x3/uL (130-400); RBC 4.49 10x6/uL (4.00-5.40); RDW 13.5 % (11.5-14.5); WBC 6.8 10x3/uL (4.8-10.8)
[2017-10-09 13:25] LABS: APPEARANCE CLEAR (CLEAR); BILIRUBIN NEGATIVE (NEGATIVE); COLOR YELLOW (YELLOW); GLUCOSE NEGATIVE (NEGATIVE); KETONE NEGATIVE (NEGATIVE); NITRITE NEGATIVE (NEGATIVE); PROTEIN 2+ mg/dL (NEGATIVE); UROBILINOGEN NORMAL (NORMAL)
[2017-10-09 13:27] LABS: WHITE CELLS - URINE 0-5 /hpf (0-5)
[2017-10-09 13:28] LABS: BACTERIA FEW /hpf (NONE SEEN); MUCUS <1+ /lpf (NONE SEEN); RED CELLS - URINE 0-5 /hpf (0-5); YEAST <1+ /hpf (NONE SEEN)
[2017-10-09 13:30] LABS: ALBUMIN 4.1 g/dL (3.4-5.0); BILIRUBIN - TOTAL 0.7 mg/dL (0.2-1.3); CALCIUM 10.2 mg/dL (8.5-10.1); CARBON DIOXIDE 29.7 mmol/L (21.0-32.0); CREATININE - SERUM 0.9 mg/dL (0.6-1.3); POTASSIUM - SERUM 3.7 mmol/L (3.5-5.1); PROTEIN - SERUM 9.4 g/dL (6.4-8.2)
== END 2017-10-09 16:53 | disposition home or self-care (01) ==
LOC: D.ER 12:43
PROVIDERS: Emergency Medicine
DX: S36.32XA Contusion of stomach, initial encounter (principal); X58.XXXA Exposure to other specified factors, initial encounter; Y93.89 Activity, other specified; Y92.89 Other specified places as the place of occurrence of the external cause; Z85.038 Personal history of other malignant neoplasm of large intestine; K21.9 Gastro-esophageal reflux disease without esophagitis

== ENCOUNTER 2017-11-09 06:35 | Outpatient (CLI) | payer BC, MEDICARE ==
[~2017-11-09] VITALS: Ht 162.6 cm; Wt 105.9 kg
[2017-11-09 07:11] LABS: BASOPHILS 0.2 % (0-2); EOSINOPHILS 0.2 % (0-7); HEMOGLOBIN 13.2 g/dL (12-16); IMMATURE GRANULOCYTES 0.2 % (0-5); LYMPHOCYTES 34.7 % (15-50); MCH 30.3 pg (26.0-34.0); MCHC 33.8 g/dL (31.0-37.0); MCV 89.4 fL (80.0-100.0); MEAN PLATELET VOLUME 10.1 fL (7.4-10.4); NEUTROPHILS 60.7 % (40-80); PLATELET COUNT 263 10x3/uL (130-400); RBC 4.36 10x6/uL (4.00-5.40); RDW 13.9 % (11.5-14.5); WBC 5.2 10x3/uL (4.8-10.8)
[2017-11-09 07:36] LABS: INR 1.03 (0.85-1.17); PROTIME 13.1 SECONDS (11.6-15.0)
[2017-11-09 07:40] LABS: ANION GAP 17.6 mmol/L (8-16); CALCIUM 9.9 mg/dL (8.5-10.1); CARBON DIOXIDE 23.4 mmol/L (21.0-32.0); CREATININE - SERUM 0.9 mg/dL (0.6-1.3)
[2017-11-09 08:27] VITALS: BP 148/77; Ht 162.6 cm; Wt 105.9 kg
[2017-11-09 16:02] LABS: EOS BF 2 %; MACROPHAGES BF 3 %; NEUT - BF 74 %
== END 2017-11-09 12:35 | disposition home or self-care (01) ==
LOC: D.SP 06:35 → D.CT 09:00 → D.SP 12:35
PROVIDERS: General Practice
DX: L76.34 Postprocedural seroma of skin and subcutaneous tissue following other procedure (principal); Z85.038 Personal history of other malignant neoplasm of large intestine; Z01.812 Encounter for preprocedural laboratory examination

== ENCOUNTER → 2017-11-16 08:57 | Outpatient (CLI) | payer BC, MEDICARE ==
[2017-11-09 08:27] VITALS: BMI 40.1
[~2017-11-16 08:57] MED LIST changes: +LUMIGAN 0.01%2.5 ML EACH EYE; +PREDNISONE50 MG
== END | disposition home or self-care (01) ==
LOC: D.CT 08:57
DX: S30.1XXA Contusion of abdominal wall, initial encounter (principal); X58.XXXA Exposure to other specified factors, initial encounter; Y93.9 Activity, unspecified; Y92.9 Unspecified place or not applicable

== ENCOUNTER 2017-11-22 06:50 | Outpatient (CLI) | payer BC, MEDICARE ==
[~2017-11-22] VITALS: Ht 162.6 cm; Wt 104.5 kg
--- NOTE | ~2017-11-22 | HEMODYNAMI ---
PATIENT:DONNIE BROWN MEDICAL RECORD: [id number] : 50 LOCATION:DEdilbertoNADIR ADMISSION DATE: 11/22/17 Generatedon:11/22/20179:44 Patient name: DONNIE BROWN Patient #: [id number] SSN: : 1950 Date of study: 11/22/2017 Page: Of Hemodynamic Procedure Report Patient Data Patient Demographics Procedure consent was obtained First Name: DONNIE Gender: Female Last Name: KEVIN : 1950 [facility] Initial: D Age: 67 year(s) Patient #: [id number] Race: Black Additional ID: [id number] Contact details [address]: [address] [place] [address] State: [place] City: [place] Zip code: [address] Past Medical History History of disease Date Diagnosis Comments CAD Allergies Allergen Reaction Date Comments Reported Shellfish 04/01/2015 Other allergy 04/01/2015 BIAXIN Shellfish 11/22/2017 shell fish Admission Admission Data Admission Date: 11/22/2017 Admission Time: 6:50 Procedure Procedure Types Cath Procedure Peripheral Cath Diagnostic Procedure Abscess Abscess Drain Injection Procedure Description Procedure Date Procedure Date: 11/22/2017 Procedure Start Time: 9:23 Procedure End Time: 9:44 Procedure Staff Name Function Primitivo Longoria MD Performing Physician Betsy Oliver RT Monitor Farhana Smallwood RN Nurse Issac Marcos RT Scrub Procedure Data Cath Procedure Fluoroscopy Diagnostic fluoroscopy Total fluoroscopy Time: 1.3 time: 1.3 min min Diagnostic fluoroscopy Total fluoroscopy dose: 158 dose: 158 mGy mGy Contrast Material Contrast Material Type Amount (ml) Isovue 300 75 Procedure Medications Medication Administration Route Dosage Heparin Flush Bag added to field 1 bags (1000units/500ml NS) Lidocaine 1% added to field 20 Benadryl I.V. 50 mg Oxygen etCO2 Nasal cannula 4 l/min Fentanyl I.V. 50 mcg Versed I.V. 2 mg Fentanyl I.V. 50 mcg Hemodynamics Rest Heart Rate: 91 (bpm) Snapshots Pre Cath Intra NCS Post Cath Vital Signs Time Heart Resp SPO2 etCO2 NIBP (mmHg) Rhythm Pain Status Sedation Rate (ipm) (%) (mmHg) Level (bpm) 9:06:52 88 17 99 Measuring NSR 0 (11) , No 10(A) pain 9:07:47 91 21 99 27.7 196/113(165) NSR 0 (11) , No 10(A) pain 9:12:29 89 20 99 32.2 214/109(151) NSR 0 (11) , No 10(A) pain 9:16:15 86 17 100 32.9 204/111(152) NSR 0 (11) , No 10(A) pain 9:20:41 85 22 97 22.4 192/112(158) NSR 0 (11) , No 10(A) pain 9:25:05 79 21 96 27.7 169/100(130) NSR 2 (11) , 8(A) Uncomfortable 9:29:23 76 18 98 38.2 167/96(131) NSR 0 (11) , No 8(A) pain 9:33:39 80 27 98 27.7 175/103(136) NSR 0 (11) , No 8(A) pain 9:38:01 74 19 96 32.9 165/86(128) NSR 0 (11) , No 8(A) pain 9:42:16 97 30.7 No Cuff NSR 0 (11) , No 8(A) pain Medications Time Medication Route Dose Verified Delivered Reason Notes Effect iveness by by 8:38:25 Heparin Flush added 1 Bag to bags (1000units/500ml field NS) 8:38:40 Lidocaine 1% added 20ml to vial field 9:10:50 Benadryl I.V. 50 mg Primitivo Delcid Per Cl Longoria RN protocol MD 9:11:30 Oxygen etCO2 4 Primitivo Delcid Per Nasal l/min Cl Longoria RN protocol cannula 9:21:21 Fentanyl I.V. 50 Primitivo Delcid for Dozing mcg Cl Longoria RN sedation intermittently MD @ 9:28:36 9:21:33 Versed I.V. 2 mg Primitivo Delcid for Dozing Cl Longoria RN sedation intermittently MD @ 9:28:39 9:28:15 Fentanyl I.V. 50 Primitivo Delcid for Mostly Cl Balbuena RN sedation sleeping @ MD 9:35:35 Procedure Log Time Note 8:36:55 Farhana Smallwood RN sent for patient. Start room use. 8:37:09 Time tracking: Regular hours (M-F 7:00 - 5:00) 8:37:40 Use device set IR Diagnostic 8:37:46 Bag Decanter (2002S) opened to sterile field. 8:37:48 Sterile Angiographic Pack opened to sterile field. 8:37:49 Tegaderm 4 x 4 ([id number]) opened to sterile field. 8:38:25 Heparin Flush Bag (1000units/500ml NS) 1 bags added to field was administered by ; ; 8:38:40 Lidocaine 1% 20ml vial added to field was administered by ; ; 8:54:22 Plan of Care:Hemodynamics will remain stable., Cardiac rhythm will remain stable., Comfort level will be maintained., Respiratory function will remain adequate., Patient/ family verbilizes understanding of procedure., Procedure tolerated without complication., Recovers from procedure without complications.. 8:54:37 Patient received from Outpatients to IR Alert and oriented. Tansferred to table in Supine position. 8:54:42 Correct patient and procedure confirmed by team. 8:54:49 Signed procedure consent form obtained from patient. 8:54:59 Full Disclosure recording started 8:55:00 9:03:06 ECG and BP/O2 sat monitors applied to patient. 9:03:43 H&P Date Dictated: 11/22/2017 Within 30 days and on chart.. 9:03:46 Pre-procedure instructions explained to patient. 9:03:49 Pre-op teaching completed and patient verbalized understanding. 9:04:09 Family unavailable. 9:04:15 Patient NPO since Midnight. 9:04:57 Patient allergic to Shellfishshell fish 9:05:01 Vital chart was started 9:05:05 Baseline sample Acquired. 9:05:18 Is the patient allergic to Iodine/contrast media? No. 9:05:21 Was the patient premedicated? Yes 9:05:46 IV patent on arrival in left wrist with 0.9% NaCl at [facility]. 9:06:24 Right Abdomen was prepped with chlora-prep and draped in sterile fashion. 9:06:27 Alarms reviewed by R. N. 9:06:28 Sharps counted by scrub and verified by R.N. 9:07:15 ----Pre-sedation anethsthesia assessment.---- 9:07:20 Snore? Yes 9:07:23 Sleep apnea? No 9:07:26 Deviated septum? No 9:07:28 Opens mouth fully? Yes 9:07:30 Sticks out tongue? Yes 9:07:41 Dentures? No ? 9:07:53 Is patient on blood thinner?No 9:07:55 Patient diabetic? No. 9:08:06 Patient not . Patient is over age 55. 9:08:10 Previous problem with sedation/anesthesia? No ? 9:09:21 Airway obstruction? No ? 9:09:28 Airway obstruction? No ? 9:10:50 Benadryl 50 mg I.V. was administered by Farhana Smallwood RN; Per protocol; 9:11:30 Oxygen 4 l/min etCO2 Nasal cannula was administered by Farhana Smallwood RN; Per protocol; 9:14:50 STOPCOCK 3-Way Large Bore ([id number]) opened to sterile field. 9:14:52 Abscession 12 FR drainage catheter ([id number]) opened to sterile field. 9:17:25 Physician arrived 9:17:27 --------ALL STOP TIME OUT------ 9:17:28 Final Timeout: patient, procedure, and site verified with staff and physician. All members of the team are in agreement. 9:17:37 Right abdomen site verified by team. 9:17:48 Sedation plan: IV Moderate Sedation Medication:Versed, Fentanyl 9:20:47 Procedure started. 9:21:21 Fentanyl 50 mcg I.V. was administered by Farhana Smallwood RN; for sedation; 9:21:33 Versed 2 mg I.V. was administered by Farhana Smallwood RN; for sedation; 9:23:33 Local anesthetic to Abdominal area with Lidocaine 1% by Primitivo Longoria MD.INITIAL ACCESS ONLY 9:24:42 Contrast injected into existing tube. 9:26:36 Short modi wire is inserted into existing tube and tube removed. 9:27:11 Abscession 14FR drainage catheter ([id number]) opened to sterile field. 9:27:12 MODI 80cm wire ([id number]) opened to sterile field. 9:27:14 DILATOR, VESSEL 06/29 opened to sterile field. 9:27:18 BAG, DRAINAGE EMPTY 600ML W/CASSANDRA ([id number]) opened to sterile field. 9:28:15 Fentanyl 50 mcg I.V. was administered by Farhana Smallwood RN; for sedation; 9::21 14 Frisian abcession pigtail is placed over wire and inserted. 9:28:36 Effectiveness of Fentanyl delivered @ 9:21:21 is: Dozing intermittently 9:28:39 Effectiveness of Versed delivered @ 9:21:33 is: Dozing intermittently 9:31:24 SUTURE ETHILON 2-0 BLK MONO FS opened to sterile field. 9:31:53 Contrast is injected into thru 14 armenian abcession drain. 9:32:44 NEW DRAIN SUTURED IN PLACE WITH 2.0 ETHILON 9:33:08 Procedure ended.(Physican Out) 9:35:35 Effectiveness of Fentanyl delivered @ 9:28:15 is: Mostly sleeping 9:36:35 Fluoroscopy time 01.30 minutes. 9:36:43 Flurop Dose total: 158 9:36:43 Fluoroscopy dose: 158 mGy 9:36:50 Contrast amount:Isovue 300 75ml. 9:36:54 Sharps counted by scrub and verified by R.N. 9:37:00 Insertion/operative site no bleeding no hematoma. 9:37:12 Post-op/insertion site Right Abdominal area dressed using a 4 x 4 and Tegaderm. 9:37:23 Post Abdominal area:stable 9:37:33 Post procedure instruction explained to patient.Patient verbalizes understanding. 9:37:35 Patient needs reinforcement of post procedure teaching. 9:37:40 Procedure and supply charges have been captured, reviewed, submitted and are correct. 9:41:28 Report given to Outpatients. 9:41:36 Patient transfered to Outpatients with Stretcher. 9:44:15 Procedure ended. 9:44:15 Full Disclosure recording stopped 9:44:44 Vital chart was stopped Device Usage Item Name Manufacture Quantity Catalog Hospital Part Current Minima l Lot# / Number Charge Number Stock Stock Serial# Code Bag Decanter Microtek 1 [id number] [id number] 5 () Medical Inc. Sterile Cardinal 1 [id number] 5 Angiographic Health Pack Tegaderm 4 x 3M 1 1626W [id number] [id number] [id number] 5 4 (1626W) STOPCOCK [employer] 1 [id number] [id number] [id number] 5 [id number] 3-Way Large Bore ([id number]) Abscession Angiodynamics 1 [id number] 601657 416953 317559 5 12 FR drainage catheter ([id number]) Abscession Angiodynamics 1 [id number] 696755 318474 [id number] 5 14FR drainage catheter ([id number]) MODI 80cm [employer] 1 [id number] 679631 064224 5 [id number] wire ([id number]) DILATOR, [employer] 1 F75565 941240 493557 [id number] 5 [id number] VESSEL 12/20 BAG, [facility] 1 [id number] 196779 068231 5 DRAINAGE EMPTY 600ML W/CASSANDRA ([id number]) SUTURE Ethicon 1 [id number] 534116 537487 5 ETHILON 2-0 BLK MONO FS Signature Audit [place] Stage Time Signature Unsigned Intra-Procedure 11/22/2017 Betsy 9:44:42 AM Benito GANN (R) (CV) Signatures Monitor : Betsy Signature : Benito RT Date : Time : [facility] [address] [place] [address]
[~2017-11-22 06:50] MED LIST changes: -LUMIGAN 0.01%2.5 ML EACH EYE; -PREDNISONE50 MG
[2017-11-22] MEDS ORDERED: PREDNISONE50 MG (07:44)
[2017-11-22 08:05] LABS: BASOPHILS 0 % (0-2); EOSINOPHILS 0 % (0-7); HEMATOCRIT 36.3 % (36.0-48.0); HEMOGLOBIN 12.2 g/dL (12-16); IMMATURE GRANULOCYTES 0.1 % (0-5); LYMPHOCYTES 11.6 % (15-50); MCH 29.8 pg (26.0-34.0); MCHC 33.6 g/dL (31.0-37.0); MCV 88.8 fL (80.0-100.0); MONOCYTES 1.2 % (2-11); NEUTROPHILS 87.1 % (40-80); PLATELET COUNT 248 10x3/uL (130-400); RBC 4.09 10x6/uL (4.00-5.40); RDW 13.5 % (11.5-14.5); WBC 6.8 10x3/uL (4.8-10.8)
[2017-11-22 08:14] LABS: APTT 36.4 SECONDS (22.8-39.4); INR 1.11 (0.85-1.17); PROTIME 13.9 SECONDS (11.6-15.0)
[2017-11-22 08:16] LABS: ANION GAP 14.8 mmol/L (8-16); CALCIUM 9.3 mg/dL (8.5-10.1); CARBON DIOXIDE 23.4 mmol/L (21.0-32.0); CREATININE - SERUM 0.9 mg/dL (0.6-1.3); POTASSIUM - SERUM 3.2 mmol/L (3.5-5.1)
[2017-11-22 08:20] VITALS: BP 166/83; Ht 162.6 cm; Wt 104.5 kg
== END 2017-11-22 11:20 | disposition home or self-care (01) ==
LOC: D.SP 06:50 → D.RAD 09:00 → D.SP 09:00
PROVIDERS: General Practice
DX: L76.34 Postprocedural seroma of skin and subcutaneous tissue following other procedure (principal); Z85.038 Personal history of other malignant neoplasm of large intestine; Z01.812 Encounter for preprocedural laboratory examination

== ENCOUNTER 2017-11-29 01:40 | Inpatient (IN) | payer BC, MEDICARE ==
[~2017-11-29] VITALS: Ht 162.6 cm; Wt 58.8 kg
--- NOTE | ~2017-11-29 | HP ---
PATIENT: DONNIE BROWN MEDICAL RECORD: [id number] ACCOUNT: [id number] LOCATION:D. D.2103 : 50 ADMISSION DATE: 11/29/17 HISTORY AND PHYSICAL EXAMINATION CHIEF COMPLAINT: Abdominal pain. HISTORY OF PRESENT ILLNESS: This is a 67-year-old -[place] who presents to the Emergency Department complaining of worsening generalized abdominal pain. She had nausea, but no vomiting. This pain started the day before on 11/28. She has had small BMs just prior to this. She has had a large seroma in her abdomen for over a year and has been seeing interventional radiology for this. She has had a drainage catheter placed and this was changed to a larger one and will probably be changed to an even larger one today. In the Emergency Room, her white count was normal. Her hemoglobin was 11.9. CT of the abdomen and pelvis showed continued subcutaneous complex abscess with drainage catheter in place and the size of the seroma was unchanged from last CT on Nov 16 2017. There was mild small bowel distention consistent with ileus versus early small-bowel obstruction. She is admitted for further evaluation. PAST MEDICAL AND SURGICAL HISTORY: She has had colon cancer, hypertension, hyperlipidemia, and arthritis. PAST SURGICAL HISTORY: Partial colectomy, ventral hernia repair September of 2016. HOME MEDICATIONS: Include valsartan 80 mg once a day, aspirin 81 mg once a day, Lasix 20 mg once a day, Alphagan ophthalmic drops 1 drop in each eye twice a day, Lumigan eye drops 1 drop in each eye at bedtime, Protonix 40 mg once a day. ALLERGIES: BIAXIN AND SHELLFISH. SOCIAL HISTORY: . 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 HABITS: Never smoked. Social drinker. No illicit drug use. FAMILY HISTORY: Father had coronary artery disease. Mother hypertension, diabetes, and cancer. REVIEW OF SYSTEMS: GENERAL: No major weight changes. HEENT: No particular sinus or allergy problems. RESPIRATORY: No history of emphysema or asthma. CARDIAC: She had an angiogram in [address] Argueta, it showed a 30% blockage. GASTROINTESTINAL: She has had reflux. GENITOURINARY: No significant problems there. MUSCULOSKELETAL: She has had some arthritic aches and pains. NEUROLOGIC: No migraines or seizures. PSYCHIATRIC: No depression or melancholia. PHYSICAL EXAMINATION: VITAL SIGNS: Temperature 98.8, pulse 88, respirations 18, blood pressure 175/83. GENERAL: She does not appear to be in acute distress. She had just been moved from the ER to room 2103. HISTORY AND PHYSICAL [id number] DONNIE BROWN HEENT: Grossly within normal limits. NECK: Supple. HEART: Regular rate and rhythm without murmur. LUNGS: Clear to auscultation. ABDOMEN: Distended like it has been for the last year. She has a drainage catheter in place in the lower abdomen. No sign of infection. EXTREMITIES: Trace edema. NEUROLOGIC: Intact. LABORATORY DATA: INR 1.06. Basic metabolic panel is all normal. Glucose is 101. CT of the abdomen and pelvis showed continued subcutaneous complex abscess/seroma with drainage catheter in place, size is unchanged from previous CT on 11/16/2017, mild small bowel distention consistent with ileus versus small-bowel obstruction. ASSESSMENT: Early small-bowel obstruction versus ileus. PLAN: No need for NG tube at this time. She is not vomiting. We will keep her n.p.o. General surgery has been consulted. Interventional radiology is aware that she is here and they may change out her catheter to a larger size. Other tests or procedures as warranted. TRANSINT:[id number] Voice Confirmation ID: [id number] DOCUMENT ID: [id number] VENUS HERNÁNDEZ MD at 1344 CC: [id number] DICTATION DATE: 11/30/17 0855 TABLET MACHINE OPERATOR: 11/30/17 1146 ADM IN [facility] [address] [place] [address]
--- NOTE | ~2017-11-29 | HEMODYNAMI ---
PATIENT:DONNIE BROWN MEDICAL RECORD: [id number] : 50 LOCATION:D. D.2103 ADMISSION DATE: 11/29/17 Generatedon:11/29/201711:57 Patient name: DONNIE BROWN Patient #: [id number] SSN: : 1950 Date of study: 11/29/2017 Page: Of Hemodynamic Procedure Report Patient Data Patient Demographics Procedure consent was obtained First Name: DONNIE Gender: Female Last Name: KEVIN : 1950 [facility] Initial: D Age: 67 year(s) Patient #: [id number] Race: Black Additional ID: [id number] Contact details Address: [address] [place] [address] State: [place] City: [place] Zip code: [address] Past Medical History History of disease Date Diagnosis Comments CAD Allergies Allergen Reaction Date Comments Reported Shellfish 04/01/2015 Other allergy 04/01/2015 BIAXIN Shellfish 11/22/2017 shell fish Admission Admission Data Admission Date: 11/29/2017 Admission Time: 4:08 Room #: D.2103 Procedure Procedure Types Cath Procedure Peripheral Cath Diagnostic Procedure Cath Peripheral Abscess Abscessogram W Exchange Procedure Description Procedure Date Procedure Date: 11/29/2017 Procedure Start Time: 11:27 Procedure Staff Name Function Juan Carlos Wilson MD Performing Physician Cindy De León RT Modular Set Crew Member Cindy De León RT Monitor Kaila Woods RN Nurse Betsy Oliver RT Scrub Procedure Data Cath Procedure Fluoroscopy Diagnostic fluoroscopy Total fluoroscopy Time: 1.4 time: 1.4 min min Diagnostic fluoroscopy Total fluoroscopy dose: 91 dose: 91 mGy mGy Contrast Material Contrast Material Type Amount (ml) Isovue 300 20 Procedure Medications Medication Administration Route Dosage Lidocaine 1% added to field 20 Heparin Flush Bag added to field 1 bags (1000units/500ml NS) Versed I.V. 1 mg Fentanyl I.V. 50 mcg Versed I.V. 1 mg Fentanyl I.V. 50 mcg Hemodynamics Rest Heart Rate: 57 (bpm) Snapshots Pre Cath Intra NCS Post Cath Vital Signs Time Heart Resp SPO2 etCO2 NIBP (mmHg) Rhythm Pain Sedation Rate (ipm) (%) (mmHg) Status Level (bpm) 11:28:58 60 20 99 39.8 Measuring NSR 0 (11) 10(A) , No pain 11:29:33 59 21 98 39.8 139/66(91) NSR 0 (11) 10(A) , No pain 11:34:32 64 13 100 30.8 Auto NIBP NSR 0 (11) 10(A) off , No pain 11:35:02 59 18 100 36 159/76(122) NSR 0 (11) 10(A) , No pain 11:39:31 63 18 100 24 149/78(104) NSR 0 (11) 10(A) , No pain 11:44:30 60 21 100 37.6 Auto NIBP NSR 0 (11) 10(A) off , No pain 11:48:05 57 18 100 36.1 156/79(123) NSR 0 (11) 10(A) , No pain 11:53:04 63 17 100 30.8 Auto NIBP NSR 0 (11) 10(A) off , No pain 11:55:25 65 24 22.5 155/68(108) NSR 0 (11) 10(A) , No pain Medications Time Medication Route Dose Verified Delivered Reason Notes Effec tiveness by by 11:12:26 Lidocaine 1% added 20ml M J Long M J Long used for to vial MD CHENG procedure field 11:12:42 Heparin Flush added 1 M J Long M J Long used for Bag to bags MD CHENG procedure (1000units/500ml field NS) 11:27:07 Versed I.V. 1 mg M J Long Kaila for MD Chuck SUAREZ sedation 11:27:25 Fentanyl I.V. 50 M J Long Kaila for mcg MD Woods RN sedation 11:32:50 Versed I.V. 1 mg M J Long Kaila for MD Woods RN sedation 11:32:58 Fentanyl I.V. 50 M J Long Kaila for roxana Woods RN sedation Procedure Log Time Note 10:48:57 Use device set IR Diagnostic 11:08:42 Time tracking: Regular hours (M-F 7:00 - 5:00) 11:09:12 Plan of Care:Hemodynamics will remain stable., Cardiac rhythm will remain stable., Comfort level will be maintained., Respiratory function will remain adequate., Patient/ family verbilizes understanding of procedure., Procedure tolerated without complication., Recovers from procedure without complications.. 11:09:28 Patient received from Med II to IR Alert and oriented. Tansferred to table in Supine position. 11:09:33 Correct patient and procedure confirmed by team. 11:09:35 Signed procedure consent form obtained from patient. 11:09:41 H&P Date Dictated: 11/29/2017 Within 30 days and on chart.. 11:09:43 - 11:09:44 Pre-procedure instructions explained to patient. 11::45 Pre-op teaching completed and patient verbalized understanding. 11:09:47 Family unavailable. 11:09:49 Patient NPO since Midnight. 11:10:40 allergies: biaxin, shellfish 11:11:44 Is the patient allergic to Iodine/contrast media? No. 11:11:46 Is patient on blood thinner?No 11:11:51 Patient diabetic? No. 11:11:52 - 11:11:54 ----Pre-sedation anethsthesia assessment.---- 11:11:58 Previous problem with sedation/anesthesia? No ? 11:12:04 Snore? Yes 11:12:08 Sleep apnea? No 11:12:10 Deviated septum? No 11:12:12 Opens mouth fully? Yes 11:12:15 Sticks out tongue? Yes 11:12:26 Lidocaine 1% 20ml vial added to field was administered by Juan Carlos Wilson MD; used for procedure; 11:12:42 Heparin Flush Bag (1000units/500ml NS) 1 bags added to field was administered by Juan Carlos Wilson MD; used for procedure; 11:12:46 Airway obstruction? No but has 30% blockage LAD 11:12:52 Dentures? No ? 11:12:54 - 11:13:22 IV patent on arrival in left forearm with D5/.45%NaCl at KVO. 11:13:58 Right abdomen area was prepped with chlora-prep and draped in sterile fashion 11:14:02 - 11:14:13 Tegaderm 4 x 4 (1626W) opened to sterile field. 11:14:15 Sterile Angiographic Pack opened to sterile field. 11:14:15 Bag Decanter (2002S) opened to sterile field. 11:19:15 Cook MULTIPURPOSE 18FR Drainage Catheter ([id number]) opened to sterile field. 11:24:51 Physician arrived 11:26:45 GLIDE WIRE .035 180CM STRAIGHT ([id number]) opened to sterile field. 11:27:04 --------ALL STOP TIME OUT------ 11:27:05 Final Timeout: patient, procedure, and site verified with staff and physician. All members of the team are in agreement. 11:27:07 Versed 1 mg I.V. was administered by Kaila Woods RN; for sedation; 11:27:09 Vital chart was started 11:27:20 Procedure started. 11:27:20 Full Disclosure recording started 11::25 Fentanyl 50 mcg I.V. was administered by Kaila Woods RN; for sedation ; 11:27:25 Local anesthetic to Abdominal area with Lidocaine 1% by Juan Carlos Wilson MD.INITIAL ACCESS ONLY 11:31:54 STOPCOCK 3-Way Large Bore ([id number]) opened to sterile field. 11:32:50 Versed 1 mg I.V. was administered by Kaila Woods RN; for sedation; 11:32:58 Fentanyl 50 mcg I.V. was administered by Kaila Woods RN; for sedation ; 11:33:41 BAG, DRAINAGE EMPTY 600ML W/CASSANDRA ([id number]) opened to sterile field. 11:37:19 SUTURE ETHILON 2-0 BLK MONO FS opened to sterile field. 11:38:37 - 11:39:02 Baseline sample Acquired. 11:49:02 drain exchanged to a 18fr drain 11:49:05 Procedure ended.(Physican Out) 11:49:34 Fluoroscopy time 01.40 minutes. 11:49:40 Fluoroscopy dose: 91 mGy 11:49:40 Flurop Dose total: 91 11:49:45 Contrast amount:Isovue 300 20ml. 11:49:47 Procedure and supply charges have been captured, reviewed, submitted an d are correct. 11:56:51 Report given to [employer] II. 11:57:22 Vital chart was stopped Device Usage Item Name Manufacture Quantity Catalog Hospital Part Current Minimal Lot# / Number Charge Number Stock Stock Serial# Code Tegaderm 4 x 3M 1 [id number] 5 4 (1626W) Sterile Cardinal 1 [id number] 566438 5 Angiographic Health Pack Bag Decanter Microtek 1 225442 57435 [id number] 5 () [employer] Prescribe Wellness Medical 1 [id number] 623245 5 [id number] MULTIPURPOSE 18FR Drainage Catheter ([id number]) GLIDE WIRE Terumo 1 [id number] 619119 185899 5 .035 180CM STRAIGHT (YG7077) STOPCOCK [employer] 1 [id number] 479791 9552 685874 5 [id number] 3-Way Large Bore (R27291) BAG, Merit 1 [id number] 424018 209665 033771 5 DRAINAGE Medical EMPTY 600ML W/CASSANDRA (KJI485) SUTURE Ethicon 1 [id number] 256538 191702 5 ETHILON 2-0 BLK MONO FS Signature Audit [place] Stage Time Signature Unsigned Intra-Procedure 11/29/2017 Cindy De León 11:57:20 AM RT(R) Signatures Monitor : Cindy De León RT Signature : Date : Time : [facility] [address] [place] [address]
[~2017-11-29 01:40] MED LIST changes: +PREDNISONE50 MG
[2017-11-29 02:17] LABS: BASOPHILS 0.3 % (0-2); EOSINOPHILS 0.9 % (0-7); HEMATOCRIT 35.6 % (36.0-48.0); HEMOGLOBIN 11.9 g/dL (12-16); IMMATURE GRANULOCYTES 0.4 % (0-5); LYMPHOCYTES 26.2 % (15-50); MCH 29.7 pg (26.0-34.0); MCHC 33.4 g/dL (31.0-37.0); MCV 88.8 fL (80.0-100.0); MEAN PLATELET VOLUME 9.4 fL (7.4-10.4); MONOCYTES 5.9 % (2-11); NEUTROPHILS 66.3 % (40-80); PLATELET COUNT 265 10x3/uL (130-400); RBC 4.01 10x6/uL (4.00-5.40); RDW 13.3 % (11.5-14.5); WBC 7.6 10x3/uL (4.8-10.8)
[2017-11-29] MEDS ORDERED: LUMIGAN 0.01%2.5 ML EACH EYE (08:18)
[2017-11-29 08:59] LABS: CALC OSMOLALITY 277 mosm/kg (275-300); CALCIUM 9.4 mg/dL (8.5-10.1); CARBON DIOXIDE 28.4 mmol/L (21.0-32.0); CHLORIDE - SERUM 105 mmol/L (98-107); CREATININE - SERUM 0.6 mg/dL (0.6-1.3); POTASSIUM - SERUM 3.8 mmol/L (3.5-5.1); SODIUM 140 mmol/L (136-145); UREA NITROGEN 10 mg/dL (7-18); eGFR NON AFRICAN AMERICAN > 90 mL/min (90-120)
[2017-11-29 09:00] LABS: GLUCOSE 101 mg/dL (74-106)
[2017-11-29 09:05] LABS: APTT 33.4 SECONDS (22.8-39.4); INR 1.06 (0.85-1.17); PROTIME 13.4 SECONDS (11.6-15.0)
[2017-11-29 15:24] VITALS: BP 152/59
[2017-11-29 15:33] VITALS: Ht 162.6 cm; Wt 58.8 kg
[2017-11-29 21:09] VITALS: BP 139/69
[2017-11-30 05:43] LABS: BASOPHILS 0.2 % (0-2); EOSINOPHILS 2.1 % (0-7); HEMATOCRIT 34.7 % (36.0-48.0); HEMOGLOBIN 11.4 g/dL (12-16); IMMATURE GRANULOCYTES 0.2 % (0-5); LYMPHOCYTES 38.7 % (15-50); MCH 29.8 pg (26.0-34.0); MCHC 32.9 g/dL (31.0-37.0); MCV 90.6 fL (80.0-100.0); MEAN PLATELET VOLUME 9.7 fL (7.4-10.4); MONOCYTES 8.1 % (2-11); NEUTROPHILS 50.7 % (40-80); PLATELET COUNT 235 10x3/uL (130-400); RBC 3.83 10x6/uL (4.00-5.40); RDW 13.6 % (11.5-14.5)
[2017-11-30 05:44] LABS: WBC 5.2 10x3/uL (4.8-10.8)
[2017-11-30 05:54] VITALS: BP 132/74
[2017-11-30 06:10] LABS: CALC OSMOLALITY 276 mosm/kg (275-300); CALCIUM 9.3 mg/dL (8.5-10.1); CARBON DIOXIDE 27.4 mmol/L (21.0-32.0); CHLORIDE - SERUM 105 mmol/L (98-107); CREATININE - SERUM 0.6 mg/dL (0.6-1.3); GLUCOSE 101 mg/dL (74-106); POTASSIUM - SERUM 3.9 mmol/L (3.5-5.1); SODIUM 139 mmol/L (136-145); UREA NITROGEN 9 mg/dL (7-18); eGFR NON AFRICAN AMERICAN > 90 mL/min (90-120)
[2017-11-30 08:52] VITALS: BP 166/82
[2017-11-30 12:47] VITALS: BP 142/73
[2017-11-30 18:08] VITALS: BP 126/70
[2017-11-30 20:00] VITALS: BP 147/62
[2017-12-01] VITALS: BP 118/64
[2017-12-01 04:00] VITALS: BP 134/62
[2017-12-01 08:39] VITALS: BP 146/76
[2017-12-01 11:57] VITALS: BP 116/71
== END 2017-12-01 17:24 | disposition home or self-care (01) | DRG 920 ==
LOC: D.ER 01:40 → D.M2 04:08 → D.EDHOLD 04:08 → D.M2 07:39
PROVIDERS: Emergency Medicine; Family Medicine; Radiology Vascular & Interventional Radiology
PROC: BW111ZZ Fluoroscopy of Abdomen and Pelvis using Low Osmolar Contrast (ICD-10-PCS; 2017-11-29)
PROC: 0W2FX0Z Change Drainage Device in Abdominal Wall, External Approach (ICD-10-PCS; principal; 2017-11-29 11:00)
PROC: 3E03317 Introduction of Other Thrombolytic into Peripheral Vein, Percutaneous Approach (ICD-10-PCS; 2017-12-01)
DX: L76.34 Postprocedural seroma of skin and subcutaneous tissue following other procedure (principal); K56.609 Unspecified intestinal obstruction, unspecified as to partial versus complete obstruction; K56.7 Ileus, unspecified; I25.10 Atherosclerotic heart disease of native coronary artery without angina pectoris; I10 Essential (primary) hypertension; E78.5 Hyperlipidemia, unspecified; Y83.9 Surgical procedure, unspecified as the cause of abnormal reaction of the patient, or of later complication, without mention of misadventure at the time of the procedure; Z85.038 Personal history of other malignant neoplasm of large intestine; Z86.718 Personal history of other venous thrombosis and embolism

== ENCOUNTER → 2017-12-14 07:41 | Outpatient (CLI) | payer BC, MEDICARE ==
[2017-11-29 15:33] VITALS: BMI 39.6
[~2017-12-14 07:41] MED LIST changes: +LUMIGAN 0.01%2.5 ML EACH EYE
== END | disposition home or self-care (01) ==
LOC: D.CT 07:41
DX: S30.1XXA Contusion of abdominal wall, initial encounter (principal); X58.XXXA Exposure to other specified factors, initial encounter

== ENCOUNTER 2017-12-29 08:19 | Outpatient (CLI) | payer BC, MEDICARE ==
[~2017-12-29] VITALS: Ht 162.6 cm; Wt 104.1 kg
[2017-12-29 08:45] LABS: BASOPHILS 0.2 % (0-2); HEMATOCRIT 36.5 % (36.0-48.0); IMMATURE GRANULOCYTES 0.2 % (0-5); LYMPHOCYTES 37.8 % (15-50); MCH 30.2 pg (26.0-34.0); MCHC 32.9 g/dL (31.0-37.0); MCV 91.7 fL (80.0-100.0); MEAN PLATELET VOLUME 9.7 fL (7.4-10.4); MONOCYTES 6.2 % (2-11); NEUTROPHILS 54.6 % (40-80); PLATELET COUNT 230 10x3/uL (130-400); RBC 3.98 10x6/uL (4.00-5.40); RDW 14.4 % (11.5-14.5); WBC 5.2 10x3/uL (4.8-10.8)
[2017-12-29 08:51] LABS: INR 1.03 (0.85-1.17); PROTIME 13.1 SECONDS (11.6-15.0)
[2017-12-29 09:03] LABS: CALC OSMOLALITY 286 mosm/kg (275-300); CALCIUM 9.6 mg/dL (8.5-10.1); CARBON DIOXIDE 27.7 mmol/L (21.0-32.0); CHLORIDE - SERUM 106 mmol/L (98-107); CREATININE - SERUM 0.8 mg/dL (0.6-1.3); GLUCOSE 103 mg/dL (74-106); POTASSIUM - SERUM 3.8 mmol/L (3.5-5.1); SODIUM 144 mmol/L (136-145); UREA NITROGEN 12 mg/dL (7-18); eGFR NON AFRICAN AMERICAN 76 mL/min (90-120)
[2017-12-29 09:15] VITALS: BP 135/67; Ht 162.6 cm; Wt 104.1 kg
== END 2017-12-29 12:20 | disposition home or self-care (01) ==
LOC: D.SP 08:19 → D.RAD 10:00 → D.SP 10:00
PROVIDERS: General Practice
DX: S30.1XXA Contusion of abdominal wall, initial encounter (principal); Z01.812 Encounter for preprocedural laboratory examination

== ENCOUNTER 2018-02-09 06:46 | Outpatient (CLI) | payer BC, MEDICARE ==
[~2018-02-09] VITALS: Ht 162.6 cm; Wt 104.5 kg
--- NOTE | ~2018-02-09 | HEMODYNAMI ---
PATIENT:DONNIE BROWN MEDICAL RECORD: [id number] : 50 LOCATION:D.SP ADMISSION DATE: 02/09/18 Generatedon:02/09/20189:59 Patient name: DONNIE BROWN Patient #: [id number] SSN: : 1950 Date of study: 02/09/2018 Page: Of Hemodynamic Procedure Report Patient Data Patient Demographics Procedure consent was obtained First Name: DONNIE Gender: Female Last Name: KEVIN : 1950 [facility] Initial: D Age: 67 year(s) Patient #: [id number] Race: Black Additional ID: [id number] Contact details Address: [address] [place] [address] State: [place] City: [place] Zip code: [address] Past Medical History History of disease Date Diagnosis Comments CAD Allergies Allergen Reaction Date Comments Reported Shellfish 04/01/2015 Other allergy 04/01/2015 BIAXIN Shellfish 11/22/2017 shell fish Shellfish Other 02/09/2018 biaxin/shellfish Admission Admission Data Admission Date: 02/09/2018 Admission Time: 6:46 Procedure Procedure Types Cath Procedure Peripheral Cath Diagnostic Procedure Abscess Abscess Drain Injection Procedure Description Procedure Date Procedure Date: 02/09/2018 Procedure Start Time: 9:39 Procedure Staff Name Function Primitivo Longoria MD Performing Physician Betsy Oliver RT Monitor Issac Marcos RT Scrub Farhana Smallwood RN Nurse Procedure Data Cath Procedure Fluoroscopy Diagnostic fluoroscopy Total fluoroscopy Time: 0.9 time: 0.9 min min Diagnostic fluoroscopy Total fluoroscopy dose: 102 dose: 102 mGy mGy Contrast Material Contrast Material Type Amount (ml) Isovue 300 85 Hemodynamics Rest Pre Cath Intra NCS Post Cath Procedure Log Time Note 9:06:15 Issac Marcos RT (R) (CV) sent for patient. Start room use. 9:06:19 Time tracking: Regular hours (M-F 7:00 - 5:00) 9:06:51 Warm blankets applied for patient comfort. 9:07:36 Correct patient and procedure confirmed by team. 9:07:40 Signed procedure consent form obtained from patient. 9:07:47 9:08:26 H&P Date Dictated: 02/09/2018 Greater than 30 days; new H&P dictated by physician. Or brief H&P completed.. 9:08:36 Pre-procedure instructions explained to patient. 9:08:41 Pre-op teaching completed and patient verbalized understanding. 9:10:12 Family unavailable. 9:10:16 Patient NPO since Midnight. 9:11:05 Patient allergic to Shellfish/biaxin/shellfish 9:11:44 Is the patient allergic to Iodine/contrast media? No. 9:12:01 Is patient on blood thinner?Yes 9:12:08 ACC The patient was administered the following blood thiners within the last 24 hours: ACCAspirin 9:13:03 IV patent on arrival in right hand with 0.9% NaCl at KVO. 9:13:31 Right Abdomen was prepped with chlora-prep and draped in sterile fashion. 9:13:36 Alarms reviewed by Brigid Mueller 9:13:38 Sharps counted by scrub and verified . 9:15:41 Use device set IR Diagnostic 9:15:46 Bag Decanter (2002S) opened to sterile field. 9:15:48 Sterile Angiographic Pack opened to sterile field. 9:38:09 Physician arrived 9:38:11 --------ALL STOP TIME OUT------ 9:38:16 Final Timeout: patient, procedure, and site verified with staff and physician. All members of the team are in agreement. 9:38:52 Right abdomen site verified by team. 9:39:15 Sedation plan: None Medication:Lidocaine 9:39:37 Procedure started. 9:44:09 The existing tube is injected with contrast. 9:45:43 The seroma is imaged in both oblique postions. 9:48:15 The contrast is flushed out of seroma. 9:49:34 Patient transfered to Outpatients with Stretcher. 9:49:47 An external bag is reconnected to existing tube. 9:49:53 Procedure ended.(Physican Out) 9:52:25 Fluoroscopy time 00.90 minutes. 9:52:32 Fluoroscopy dose: 102 mGy 9:52:32 Flurop Dose total: 102 9:52:40 Contrast amount:Isovue 300 85ml. 9:52:46 Sharps counted by scrub and verified . 9:53:36 Post Abdominal area:unchanged 9:53:47 Post procedure instruction explained to patient.Patient verbalizes understanding. 9:54:03 Tegaderm 4 x 4 (1626W) opened to sterile field. 9:54:34 Sterile dressing applied. 9:54:55 Patient needs reinforcement of post procedure teaching. 9:55:19 BAG, DRAINAGE EMPTY 600ML W/CASSANDRA (RGV402) opened to sterile field. 9:55:32 Procedure and supply charges have been captured, reviewed, submitted and are correct. 9:58:23 See physician's report for complete and final results. 9:58:26 Report given to Outpatients. Device Usage Item Name Manufacture Quantity Catalog Hospital Part Current Minimal Lot# / Number Charge Number Stock Stock Serial# Code Bag Decanter Microtek 1 2001S [id number] 5 () Medical Inc. Sterile Cardinal 1 [id number] 107113 5 Angiographic Health Pack Tegaderm 4 x 3M 1 1626W 254959 602922 219642 5 4 (1626W) BAG, Merit 1 [id number] [id number] 455321 418933 5 DRAINAGE Medical EMPTY 600ML W/CASSANDRA (YSN187) Signature Audit [place] Stage Time Signature Unsigned Intra-Procedure 02/09/2018 Betsy 9:59:52 AM Benito GANN (Nancy) (CV) Signatures Monitor : Betsy Signature : Benito GANN Date : Time : [facility] [address] [place] [address]
[2018-02-09 07:27] LABS: BASOPHILS 0.4 % (0-2); EOSINOPHILS 1.9 % (0-7); HEMATOCRIT 36.7 % (36.0-48.0); HEMOGLOBIN 12.2 g/dL (12-16); IMMATURE GRANULOCYTES 0.4 % (0-5); LYMPHOCYTES 49.7 % (15-50); MCH 30.2 pg (26.0-34.0); MCHC 33.2 g/dL (31.0-37.0); MCV 90.8 fL (80.0-100.0); MEAN PLATELET VOLUME 9.7 fL (7.4-10.4); MONOCYTES 7.5 % (2-11); NEUTROPHILS 40.1 % (40-80); PLATELET COUNT 213 10x3/uL (130-400); RBC 4.04 10x6/uL (4.00-5.40); RDW 14.5 % (11.5-14.5); WBC 5.2 10x3/uL (4.8-10.8)
[2018-02-09 07:31] LABS: APTT 35.2 SECONDS (22.8-39.4); INR 1.08 (0.85-1.17); PROTIME 13.6 SECONDS (11.6-15.0)
[2018-02-09 07:34] LABS: CALC OSMOLALITY 278 mosm/kg (275-300); CALCIUM 9.1 mg/dL (8.5-10.1); CARBON DIOXIDE 28.2 mmol/L (21.0-32.0); CHLORIDE - SERUM 105 mmol/L (98-107); CREATININE - SERUM 0.8 mg/dL (0.6-1.3); GLUCOSE 100 mg/dL (74-106); POTASSIUM - SERUM 3.8 mmol/L (3.5-5.1); SODIUM 140 mmol/L (136-145); UREA NITROGEN 12 mg/dL (7-18); eGFR NON AFRICAN AMERICAN 76 mL/min (90-120)
[2018-02-09 07:52] VITALS: BP 169/97; Ht 162.6 cm; Wt 104.5 kg
== END 2018-02-09 11:40 | disposition home or self-care (01) ==
LOC: D.SP 06:46 → D.RAD 08:00 → D.CT 08:00 → D.SP 11:40
PROVIDERS: General Practice
DX: L76.34 Postprocedural seroma of skin and subcutaneous tissue following other procedure (principal)

== ENCOUNTER → 2018-02-15 09:15 | Outpatient (CLI) | payer BC, MEDICARE ==
[2018-02-09 07:52] VITALS: BMI 39.5
--- NOTE | ~2018-02-15 | HEMODYNAMI ---
PATIENT:DONNIE BROWN MEDICAL RECORD: [id number] : 50 LOCATION:DIGNCAIO ADMISSION DATE: 02/15/18 Generatedon:02/15/201810:29 Patient name: DONNIE BROWN Patient #: [id number] SSN: : 1950 Date of study: 02/15/2018 Page: Of Hemodynamic Procedure Report Patient Data Patient Demographics Procedure consent was obtained First Name: DONNIE Gender: Female Last Name: KEVIN : 1950 [facility] Initial: D Age: 67 year(s) Patient #: [id number] Race: Black Additional ID: [id number] Contact details Address: [address] [place] [address] State: [place] City: [place] Zip code: [address] Past Medical History History of disease Date Diagnosis Comments CAD Allergies Allergen Reaction Date Comments Reported Shellfish 04/01/2015 Other allergy 04/01/2015 BIAXIN Shellfish 11/22/2017 shell fish Shellfish Other 02/09/2018 biaxin/shellfish Admission Admission Data Admission Date: 02/15/2018 Admission Time: 9:15 Procedure Procedure Types Cath Procedure Peripheral Cath Diagnostic Procedure Cath Peripheral Abscess Abscess Drain Injection Procedure Description Procedure Date Procedure Date: 02/15/2018 Procedure Start Time: 10:18 Procedure Staff Name Function Primitivo Longoria MD Performing Physician Cindy De León RT Pairer Inspector Kaila Woods RN Nurse Issac Marcos RT Scrub Procedure Data Cath Procedure Fluoroscopy Diagnostic fluoroscopy Total fluoroscopy Time: 0.3 time: 0.3 min min Diagnostic fluoroscopy Total fluoroscopy dose: 56 dose: 56 mGy mGy Contrast Material Contrast Material Type Amount (ml) Isovue 300 50 Procedure Medications Medication Administration Route Dosage Heparin Flush Bag added to field 1 bags (1000units/500ml NS) Hemodynamics Rest Pre Cath Intra NCS Post Cath Medications Time Medication Route Dose Verified Delivered Reason Notes Effec tiveness by by 10:22:47 Heparin Flush added 1 Kaila Langford used for Bag to bags Chuck Longoria MD procedure (1000units/500ml field ERICK MAYES) Procedure Log Time Note 10:00:51 Time tracking: Regular hours (M-F 7:00 - 5:00) 10:07:22 Patient received from Other to IR Alert and oriented. Tansferred to table in Supine position. 10:07:27 Signed procedure consent form obtained from patient. 10:07:30 - 10:07:36 Pre-procedure instructions explained to patient. 10:07:37 Pre-op teaching completed and patient verbalized understanding. 10:07:41 Patient NPO since Midnight. 10:08:31 patient allergic to shellfish and biaxin 10:09:00 Is the patient allergic to Iodine/contrast media? No. 10:09:05 - 10:09:39 Right abdomen area was prepped with chlora-prep and draped in sterile fashion 10:09:49 - 10:09:55 Use device set IR Diagnostic 10:10:08 Sterile Angiographic Pack opened to sterile field. 10:10:09 Bag Decanter () opened to sterile field. 10:10:19 Tegaderm 6 x 8 (1628) opened to sterile field. 10:17:16 Physician arrived 10:17:24 --------ALL STOP TIME OUT------ 10:17:25 Final Timeout: patient, procedure, and site verified with staff and physician. All members of the team are in agreement. 10:18:21 Procedure started. 10:18:21 Full Disclosure recording started 10:19:30 STOPCOCK 3-Way Large Bore ([id number]) opened to sterile field. 10:19:49 BAG, DRAINAGE EMPTY 600ML W/CASSANDRA (HRE152) opened to sterile field. 10:22:47 Heparin Flush Bag (1000units/500ml NS) 1 bags added to field was administered by Primitivo Longoria MD; used for procedure; 10:27:49 Procedure ended.(Physican Out) 10:28:00 Fluoroscopy time 00.30 minutes. 10:28:05 Fluoroscopy dose: 56 mGy 10:28:05 Flurop Dose total: 56 10:28:12 Contrast amount:Isovue 300 50ml. 10:28:15 Procedure and supply charges have been captured, reviewed, submitted an d are correct. Device Usage Item Name Manufacture Quantity Catalog Hospital Part Current Minimal Lot# / Number Charge Number Stock Stock Serial# Code Sterile Cardinal [address] [id number] 5 Angiographic Health Pack Bag Decanter Microtek 1 2001S [id number] 78442 838990 5 (2001S) Medical Inc. Tegaderm 6 x 3M 1 1628 499519 825087 5 8 (1628) STOPCOCK [employer] 1 [id number] 322012 9547 633138 5 [id number] 3-Way Large Bore (S62242) BAG, Merit 1 [id number] 310133 488984 [id number] 5 DRAINAGE Medical EMPTY 600ML W/CASSANDRA (YKV254) Signature Audit [place] Stage Time Signature Unsigned Intra-Procedure 02/15/2018 Cindy De León 10:29:07 AM RT(R) [facility] [address] [place] [address]
[2018-02-15 09:37] LABS: BASOPHILS 0.4 % (0-2); EOSINOPHILS 1.2 % (0-7); HEMATOCRIT 35.9 % (36.0-48.0); HEMOGLOBIN 12.1 g/dL (12-16); IMMATURE GRANULOCYTES 0.2 % (0-5); LYMPHOCYTES 36.9 % (15-50); MCH 30.4 pg (26.0-34.0); MCHC 33.7 g/dL (31.0-37.0); MCV 90.2 fL (80.0-100.0); MEAN PLATELET VOLUME 9.7 fL (7.4-10.4); MONOCYTES 9.4 % (2-11); NEUTROPHILS 51.9 % (40-80); PLATELET COUNT 217 10x3/uL (130-400); RBC 3.98 10x6/uL (4.00-5.40); RDW 13.9 % (11.5-14.5); WBC 4.9 10x3/uL (4.8-10.8)
[2018-02-15 09:54] LABS: APTT 34.2 SECONDS (22.8-39.4); INR 1.09 (0.85-1.17); PROTIME 13.7 SECONDS (11.6-15.0)
[2018-02-15 09:55] LABS: CALC OSMOLALITY 279 mosm/kg (275-300); CALCIUM 9.3 mg/dL (8.5-10.1); CARBON DIOXIDE 27.9 mmol/L (21.0-32.0); CHLORIDE - SERUM 104 mmol/L (98-107); CREATININE - SERUM 0.8 mg/dL (0.6-1.3); GLUCOSE 110 mg/dL (74-106); POTASSIUM - SERUM 3.7 mmol/L (3.5-5.1); SODIUM 140 mmol/L (136-145); UREA NITROGEN 13 mg/dL (7-18); eGFR NON AFRICAN AMERICAN 76 mL/min (90-120)
== END | disposition home or self-care (01) ==
LOC: D.SP 09:15 → D.RAD 10:00 → D.SP 10:00
PROVIDERS: General Practice
DX: L76.34 Postprocedural seroma of skin and subcutaneous tissue following other procedure (principal)

== ENCOUNTER → 2018-02-21 08:45 | Outpatient (CLI) | payer BC, MEDICARE ==
[2018-02-09 07:52] VITALS: BMI 39.5
--- NOTE | ~2018-02-21 | HEMODYNAMI ---
PATIENT:DONNIE BROWN MEDICAL RECORD: [id number] : 50 LOCATION:D.NADIR ADMISSION DATE: 02/21/18 Generatedon:02/21/201812:37 Patient name: DONNIE BROWN Patient #: [id number] SSN: : 1950 Date of study: 02/21/2018 Page: Of Hemodynamic Procedure Report Patient Data Patient Demographics Procedure consent was obtained First Name: DONNIE Gender: Female Last Name: KEVIN : 1950 [facility] Initial: D Age: 67 year(s) Patient #: [id number] Race: Black Additional ID: [id number] Contact details Address: [address] [place] [address] State: [place] City: [place] Zip code: [address] Past Medical History History of disease Date Diagnosis Comments CAD Allergies Allergen Reaction Date Comments Reported Shellfish 04/01/2015 Other allergy 04/01/2015 BIAXIN Shellfish 11/22/2017 shell fish Shellfish Other 02/09/2018 biaxin/shellfish Other allergy 02/21/2018 shell fish,clarithromycin, Admission Admission Data Admission Date: 02/21/2018 Admission Time: 8:45 Procedure Procedure Types Cath Procedure Peripheral Cath Diagnostic Procedure Abscess Abscessogram Procedure Description Procedure Date Procedure Date: 02/21/2018 Procedure Start Time: 12:24 Procedure Staff Name Function Primitivo Longoria MD Performing Physician Betsy Oliver RT Monitor Kaila Woods RN Nurse Issac Marcos RT Scrub Procedure Data Cath Procedure Fluoroscopy Diagnostic fluoroscopy Total fluoroscopy Time: 0.3 time: 0.3 min min Diagnostic fluoroscopy Total fluoroscopy dose: 57 dose: 57 mGy mGy Contrast Material Contrast Material Type Amount (ml) Isovue 300 0 Hemodynamics Rest Pre Cath Intra NCS Post Cath Procedure Log Time Note 12:15:23 Use device set IR Diagnostic 12:15:26 Bag Decanter (2002) opened to sterile field. 12:15:27 Sterile Angiographic Pack opened to sterile field. 12:16:58 Diagnostic Cath status Elective 12:17:06 Kaila Woods RN sent for patient. Start room use. 12:17:09 Time tracking: Regular hours (M-F 7:00 - 5:00) 12:17:28 Plan of Care:Hemodynamics will remain stable., Cardiac rhythm will remain stable., Comfort level will be maintained., Respiratory function will remain adequate., Patient/ family verbilizes understanding of procedure., Procedure tolerated without complication., Recovers from procedure without complications.. 12:18:14 Patient arrived from Other to IR. Patient remains on bed/stretcher for procedure. 12:18:16 Warm blankets applied for patient comfort. 12:18:38 Correct patient and procedure confirmed by team. 12:18:43 Signed procedure consent form obtained from patient. 12:18:49 Full Disclosure recording started 12:18:50 - 12:19:01 Pre-procedure instructions explained to patient. 12:19:02 Pre-op teaching completed and patient verbalized understanding. 12:22:07 Alarms reviewed . 12::09 Sharps counted by scrub and verified . 12::22 Right Abdomen was prepped with chlora-prep and draped in sterile fashion. 12:23:04 Family unavailable. 12:23:10 Patient NPO since Midnight. 12:23:46 Patient allergic to Other allergyshell fish,clarithromycin, 12:23:55 Physician arrived 12::56 --------ALL STOP TIME OUT------ 12:23:57 Final Timeout: patient, procedure, and site verified with staff and physician. All members of the team are in agreement. 12:24:13 Right abdomen site verified by team. 12:24:30 Procedure started. 12:30:03 BAG, DRAINAGE EMPTY 600ML W/CASSANDRA ([id number]) opened to sterile field. 12:30:46 BAG, DRAINAGE EMPTY 600ML W/CASSANDRA ([id number]) opened to sterile field. 12:32:23 Procedure ended.(Physican Out) 12:33:53 Fluoroscopy time 00.30 minutes. 12:33:59 Fluoroscopy dose: 57 mGy 12:33:59 Flurop Dose total: 57 12:34:10 Contrast amount:Isovue 300 0ml. 12:34:12 Sharps counted by scrub and verified . 12:34:46 Post Abdominal area:stable 12:34:53 Post procedure instruction explained to patient.Patient verbalizes understanding. 12:34:58 Procedure and supply charges have been captured, reviewed, submitted an d are correct. 12:35:11 See physician's report for complete and final results. 12:35:18 Report given to Other. 12:35:29 Patient transfered to Other with Ambulatory. 12:35:58 PT IS TO WAIT AN HOUR IN OUR WAITING ROOM. Device Usage Item Name Manufacture Quantity Catalog Hospital Part Current Minimal Lot# / Number Charge Number Stock Stock Serial# Code BAG, Merit 2 [id number] [id number] 5 DRAINAGE Medical EMPTY 600ML W/CASSANDRA (IIN724) Bag Decanter Microtek 1 [id number] 51364 [id number] 5 () Medical Inc. Sterile Cardinal [address] [id number] [id number] 5 Angiographic Health Pack Signature Audit [facility] Stage Time Signature Unsigned Intra-Procedure 02/21/2018 Betsy 12:37:51 PM Benito GANN (Nancy) (CV) Signatures Monitor : Betsy Signature : Benito GANN Date : Time : [facility] [address] [place] [id number]
== END | disposition home or self-care (01) ==
LOC: D.SP 08:45 → D.RAD 11:00
DX: L76.34 Postprocedural seroma of skin and subcutaneous tissue following other procedure (principal); Z01.812 Encounter for preprocedural laboratory examination

== ENCOUNTER → 2018-03-01 08:51 | Outpatient (CLI) | payer BC, MEDICARE ==
[2018-02-09 07:52] VITALS: BMI 39.5
== END | disposition home or self-care (01) ==
LOC: D.CT 08:51
DX: S36.32XA Contusion of stomach, initial encounter (principal); X58.XXXA Exposure to other specified factors, initial encounter

== ENCOUNTER → 2018-03-09 12:52 | Outpatient (CLI) | payer BC, MEDICARE ==
[2018-02-09 07:52] VITALS: BMI 39.5
--- NOTE | ~2018-03-09 | HEMODYNAMI ---
PATIENT:DONNIE BROWN MEDICAL RECORD: [id number] : 50 LOCATION:[facility] ADMISSION DATE: 03/09/18 Generatedon:03/09/201814:24 Patient name: DONNIE BROWN Patient #: [id number] SSN: : 1950 Date of study: 03/09/2018 Page: Of Hemodynamic Procedure Report Patient Data Patient Demographics Procedure consent was obtained First Name: DONNIE Gender: Female Last Name: KEVIN : 1950 [facility] Initial: D Age: 67 year(s) Patient #: [id number] Race: Black Additional ID: [id number] Contact details [address]: [address] [place] [address] State: [place] City: [place] Zip code: [address] Past Medical History History of disease Date Diagnosis Comments CAD Allergies Allergen Reaction Date Comments Reported Shellfish 04/01/2015 Other allergy 04/01/2015 BIAXIN Shellfish 11/22/2017 shell fish Shellfish Other 02/09/2018 biaxin/shellfish Other allergy 02/21/2018 shell fish,clarithromycin, Other allergy Other 03/09/2018 shellfish Admission Admission Data Admission Date: 03/09/2018 Admission Time: 12:52 Procedure Procedure Types Cath Procedure Peripheral Cath Diagnostic Procedure Abscess Procedure Description Procedure Date Procedure Date: 03/09/2018 Procedure Start Time: 14:15 Procedure Staff Name Function Primitivo Longoria MD Performing Physician Kaila Woods RN Nurse Betsy Oliver RT Scrub Issac Marcos RT Monitor Procedure Data Cath Procedure Fluoroscopy Diagnostic fluoroscopy Total fluoroscopy Time: 0 time: 0 min min Diagnostic fluoroscopy Total fluoroscopy dose: 74 dose: 74 mGy mGy Contrast Material Contrast Material Type Amount (ml) Isovue 300 45 Hemodynamics Rest Pre Cath Intra NCS Post Cath Procedure Log Time Note 13:40:13 Use device set IR Diagnostic 13:40:17 Sterile Angiographic Pack opened to sterile field. 13:40:24 Bag Decanter (2002S) opened to sterile field. 13:41:20 Issac Shuffield RT (R) (CV) sent for patient. Start room use. 13:41:26 Time tracking: Regular hours (M-F 7:00 - 5:00) 13:41:30 Correct patient and procedure confirmed by team. 13:41:32 Signed procedure consent form obtained from patient. 13:41:35 Full Disclosure recording started 13:41:36 - 13:41:37 Pre-procedure instructions explained to patient. 13:41:38 Pre-op teaching completed and patient verbalized understanding. 13:41:44 Family unavailable. 13:41:45 Patient NPO since Midnight. 13:45:57 Left abdomen area was prepped with chlora-prep and draped in sterile fashion 13:45:59 Alarms reviewed by REdilberto Rodriguez. 13:45:59 Sharps counted by scrub and verified by REdilbertoN. 14:02:54 Is patient on blood thinner?No 14:03:29 Patient allergic to shellfish. 14:07:48 Was the patient premedicated? No 14:13:14 Physician arrived 14:14:26 --------ALL STOP TIME OUT------ 14:14:28 Final Timeout: patient, procedure, and site verified with staff and physician. All members of the team are in agreement. 14:14:37 Left abdomen site verified by team. 14:14:52 Sedation plan: None Medication: 14:15:02 Procedure started. 14:17:13 AN INJECTION OF CONTRAST IS MADE THRU EXISTING CATH. 14:20:[address] 14:20:45 Procedure ended.(Physican Out) 14:22:18 BAG, DRAINAGE EMPTY 600ML W/CASSANDRA (VUH375) opened to sterile field. 14:22:25 BAG, DRAINAGE EMPTY 600ML W/CASSANDRA (UUF168) opened to sterile field. 14:22:40 Tegaderm 4 x 4 (1626W) opened to sterile field. 14:22:51 Sharps counted by scrub and verified by BrigidNEdilberto 14:22:59 Contrast amount:Isovue 300 45ml. 14:23:07 Fluoroscopy dose: 74 mGy 14:23:07 Flurop Dose total: 74 14:23:14 Fluoroscopy time 00.00 minutes. 14:23:36 Post Abdominal area:unchanged 14:23:44 Post procedure instruction explained to patient.Patient verbalizes understanding. 14:23:53 Procedure and supply charges have been captured, reviewed, submitted an d are correct. Device Usage Item Name Manufacture Quantity Catalog Hospital Part Current Minimal Lot# / Number Charge Number Stock Stock Serial# Code Sterile Cardinal 1 [id number] 5 Angiographic Health Pack Bag Decanter Microtek 1 [id number] 5 (2001S) Medical Inc[employer] BAG, Merit 2 [id number] 5 DRAINAGE Medical EMPTY 600ML W/CASSANDRA (UNT919) Tegaderm 4 x 3M 1 [id number] 5 4 (1626W) Signature Audit [place] Stage Time Signature Unsigned Intra-Procedure 03/09/2018 Betsy 2:24:51 PM Benito RT (R) (CV) Signatures Monitor : Issac Signature : Hemant RT Date : Time : [facility] [address] [place] [address]
== END | disposition home or self-care (01) ==
LOC: D.SP 12:52 → D.RAD 13:00 → D.SP 13:00
DX: L76.34 Postprocedural seroma of skin and subcutaneous tissue following other procedure (principal); Z01.812 Encounter for preprocedural laboratory examination

== ENCOUNTER → 2018-03-15 10:42 | Outpatient (CLI) | payer BC, MEDICARE ==
[2018-02-09 07:52] VITALS: BMI 39.5
--- NOTE | ~2018-03-15 | HEMODYNAMI ---
PATIENT:DONNIE BROWN MEDICAL RECORD: [id number] : 50 LOCATION:[facility] ADMISSION DATE: 03/15/18 Generatedon:03/15/201814:24 Patient name: DONNIE BROWN Patient #: [id number] SSN: : 1950 Date of study: 03/15/2018 Page: Of Hemodynamic Procedure Report Patient Data Patient Demographics Procedure consent was obtained First Name: DONNIE Gender: Female Last Name: KEVIN : 1950 [facility] Initial: D Age: 67 year(s) Patient #: [id number] Race: Black Additional ID: [id number] Contact details Address: [address] [place] [address] State: [place] City: [place] Zip code: [address] Past Medical History History of disease Date Diagnosis Comments CAD Allergies Allergen Reaction Date Comments Reported Shellfish 04/01/2015 Other allergy 04/01/2015 BIAXIN Shellfish 11/22/2017 shell fish Shellfish Other 02/09/2018 biaxin/shellfish Other allergy 02/21/2018 shell fish,clarithromycin, Other allergy Other 03/09/2018 shellfish Shellfish 03/15/2018 Admission Admission Data Admission Date: 03/15/2018 Admission Time: 10:42 Procedure Procedure Types Cath Procedure Peripheral Cath Diagnostic Procedure Cath Peripheral Abscess Abscessogram Procedure Description Procedure Date Procedure Date: 03/15/2018 Procedure Start Time: 14:18 Procedure Staff Name Function Primitivo Longoria MD Performing Physician Cindy De León RT Marketing Services Vice President Farhana Smallwood RN Nurse Issac Marcos RT Scrub Procedure Data Cath Procedure Fluoroscopy Diagnostic fluoroscopy Total fluoroscopy Time: 0.1 time: 0.1 min min Diagnostic fluoroscopy Total fluoroscopy dose: 52 dose: 52 mGy mGy Contrast Material Contrast Material Type Amount (ml) Isovue 300 65 Hemodynamics Rest Pre Cath Intra NCS Post Cath Procedure Log Time Note 14:01:25 Time tracking: Regular hours (M-F 7:00 - 5:00) 14:07:53 Signed procedure consent form obtained from patient. 14:08:01 Family in waiting room. 14:08:05 Patient NPO since Breakfast. 14:08:32 Patient allergic to Shellfish and biaxin 14:15:08 Physician arrived 14:17:33 --------ALL STOP TIME OUT------ 14:17:34 Final Timeout: patient, procedure, and site verified with staff and physician. All members of the team are in agreement. 14:18:02 Procedure started. 14:18:02 Full Disclosure recording started 14:21:49 Procedure ended.(Physican Out) 14:22:15 Fluoroscopy time 00.10 minutes. 14:22:19 Fluoroscopy dose: 52 mGy 14:22:19 Flurop Dose total: 52 14:22:25 Contrast amount:Isovue 300 65ml. 14:23:00 Use device set IR Diagnostic 14:23:02 Sterile Angiographic Pack opened to sterile field. 14:23:03 Bag Decanter (2001S) opened to sterile field. 14:23:20 BAG, DRAINAGE EMPTY 600ML W/CASSANDRA (PUI820) opened to sterile field. 14:23:21 BAG, DRAINAGE EMPTY 600ML W/CASSANDRA (NBV146) opened to sterile field. Device Usage Item Name Manufacture Quantity Catalog Hospital Part Current Minimal Lot# / Number Charge Number Stock Stock Serial# Code [facility] 1 [id number] 5 Angiographic Health Pack Bag Decanter Microtek 1 [id number] 5 () Medical Inc[employer] BAG, Merit 2 [id number] 5 DRAINAGE Medical EMPTY 600ML W/CASSANDRA (ANG882) Signature Audit [place] Stage Time Signature Unsigned Intra-Procedure 03/15/2018 Cindy De León 2:24:41 PM RT(R) [facility] [address] [place] [address]
== END | disposition home or self-care (01) ==
LOC: D.SP 10:42 → D.RAD 15:00 → D.SP 15:00
DX: L76.34 Postprocedural seroma of skin and subcutaneous tissue following other procedure (principal); Z01.812 Encounter for preprocedural laboratory examination

== ENCOUNTER → 2018-03-21 10:46 | Outpatient (CLI) | payer BC, MEDICARE ==
[2018-02-09 07:52] VITALS: BMI 39.5
--- NOTE | ~2018-03-21 | HEMODYNAMI ---
PATIENT:DONNIE BROWN MEDICAL RECORD: [id number] : 50 LOCATION:[facility] ADMISSION DATE: 03/21/18 Generatedon:03/21/201812:31 Patient name: DONNIE BROWN Patient #: [id number] SSN: : 1950 Date of study: 03/21/2018 Page: Of Hemodynamic Procedure Report Patient Data Patient Demographics Procedure consent was obtained First Name: DONNIE Gender: Female Last Name: KEVIN : 1950 [facility] Initial: D Age: 67 year(s) Patient #: [id number] Race: Black Additional ID: [id number] Contact details Address: [address] [place] [address] State: [place] City: [place] Zip code: [address] Past Medical History History of disease Date Diagnosis Comments CAD Allergies Allergen Reaction Date Comments Reported Shellfish 04/01/2015 Other allergy 04/01/2015 BIAXIN Shellfish 11/22/2017 shell fish Shellfish Other 02/09/2018 biaxin/shellfish Other allergy 02/21/2018 shell fish,clarithromycin, Other allergy Other 03/09/2018 shellfish Shellfish 03/15/2018 Other allergy 03/21/2018 shellfish Admission Admission Data Admission Date: 03/21/2018 Admission Time: 10:46 Procedure Procedure Types Cath Procedure Peripheral Cath Diagnostic Procedure Miscellaneous Procedure Description Procedure Date Procedure Date: 03/21/2018 Procedure Start Time: 12:20 Procedure Staff Name Function Primitivo Longoria MD Performing Physician Betsy Oliver RT Monitor Issac Marcos RT Scrub Farhana Smallwood RN Nurse Procedure Data Cath Procedure Fluoroscopy Diagnostic fluoroscopy Total fluoroscopy Time: 0.2 time: 0.2 min min Diagnostic fluoroscopy Total fluoroscopy dose: 33 dose: 33 mGy mGy Contrast Material Contrast Material Type Amount (ml) Isovue 300 0 Hemodynamics Rest Pre Cath Intra NCS Post Cath Procedure Log Time Note 12:09:07 Issac Marcos RT (R) (CV) sent for patient. Start room use. 12:09:25 Time tracking: Regular hours (M-F 7:00 - 5:00) 12:09:32 Patient received from Other to IR Alert and oriented. Tansferred to table in Supine position. 12::34 Correct patient and procedure confirmed by team. 12::36 Signed procedure consent form obtained from patient. 12::37 ECG and BP/O2 sat monitors applied to patient. 12::40 Pre-procedure instructions explained to patient. 12::41 Pre-op teaching completed and patient verbalized understanding. 12::43 Patient NPO since Midnight. 12::01 Patient allergic to Other allergyshellfish 12::06 Use device set IR Diagnostic 12::09 Sterile Angiographic Pack opened to sterile field. 12:: Bag Decanter (2002S) opened to sterile field. 12:19:24 Physician arrived 12::27 --------ALL STOP TIME OUT------ 12::28 Final Timeout: patient, procedure, and site verified with staff and physician. All members of the team are in agreement. 12:19:38 Right abdomen site verified by team. 12:19:56 Sedation plan: None Medication:none. 12:20:05 Procedure started. 12:20:06 Full Disclosure recording started 12:22:58 A stiff 0.35guidewire is inserted into the existing cath and the cath is removed. 12:23:08 Procedure ended.(Physican Out) 12:24:46 Fluoroscopy time 00.20 minutes. 12:24:57 Fluoroscopy dose: 33 mGy 12:24:57 Flurop Dose total: 33 12:25:10 Contrast amount:Isovue 300 0ml. 12:26:05 Sharps counted by scrub and verified by R.N. 12:26:40 Post Abdominal area:stable 12:26:53 Insertion/operative site no bleeding no hematoma. 12:27:03 Post-op/insertion site Right Abdominal area dressed using a 4 x 4 and Tegaderm. 12:27:40 Post procedure instruction explained to patient.Patient verbalizes understanding. 12:27:42 Procedure and supply charges have been captured, reviewed, submitted and are correct. 12:29:03 See physician's report for complete and final results. 12:29:12 Patient transfered to Other with Ambulatory. Device Usage Item Name Manufacture Quantity Catalog Hospital Part Current Minimal Lot# / Number Charge Number Stock Stock Serial# Code Sterile Apex 1 [id number] 5 Angiographic Health Pack Bag Decanter Microtek 1 [id number] 5 () Hemoteq. Signature Audit [place] Stage Time Signature Unsigned Intra-Procedure 03/21/2018 Betsy 12:30:57 PM Benito GANN (Nancy) () Signatures Monitor : Betsy Signature : Benito GANN Date : Time : [address] [address]
== END | disposition home or self-care (01) ==
LOC: D.SP 10:46 → D.RAD 11:00 → D.SP 11:00
DX: Z48.03 Encounter for change or removal of drains (principal); Z01.812 Encounter for preprocedural laboratory examination

== ENCOUNTER → 2018-07-24 13:16 | Outpatient (CLI) | payer BC, MEDICARE ==
[2018-02-09 07:52] VITALS: BMI 39.5
[~2018-07-24 13:16] MED LIST changes: +BACTRIM 400-801 TAB PO; -FUROSEMIDE20 MG PO; +LASIX20 MG PO
== END | disposition home or self-care (01) ==
LOC: D.CT 13:16
DX: L76.34 Postprocedural seroma of skin and subcutaneous tissue following other procedure (principal)

== ENCOUNTER 2018-08-08 08:00 | Day surgery (SDC) | payer BC, MEDICARE ==
[2018-08-07 14:09] LABS: BASOPHILS 0.2 % (0-2); EOSINOPHILS 1.2 % (0-7); HEMATOCRIT 32.5 % (36.0-48.0); HEMOGLOBIN 10.6 g/dL (12-16); IMMATURE GRANULOCYTES 0.2 % (0-5); LYMPHOCYTES 40.5 % (15-50); MCHC 32.6 g/dL (31.0-37.0); MONOCYTES 4.5 % (2-11); NEUTROPHILS 53.4 % (40-80); RBC 3.65 10x6/uL (4.00-5.40); WBC 5.1 10x3/uL (4.8-10.8)
[2018-08-07 14:17] LABS: PLATELET COUNT 274 10x3/uL (130-400)
[2018-08-07 14:27] LABS: INR 1.08 (0.85-1.17); PROTIME 13.5 SECONDS (11.6-15.0)
[2018-08-07 14:28] LABS: APTT 40.1 SECONDS (22.8-39.4)
[2018-08-07 14:32] LABS: CALC OSMOLALITY 277 mosm/kg (275-300); CARBON DIOXIDE 23.8 mmol/L (21.0-32.0); CHLORIDE - SERUM 104 mmol/L (98-107); CREATININE - SERUM 0.8 mg/dL (0.6-1.3); GLUCOSE 95 mg/dL (74-106); POTASSIUM - SERUM 3.5 mmol/L (3.5-5.1); SODIUM 140 mmol/L (136-145); UREA NITROGEN 10 mg/dL (7-18); eGFR NON AFRICAN AMERICAN 76 mL/min (90-120)
[~2018-08-08] VITALS: Ht 162.6 cm; Wt 103.6 kg
--- NOTE | ~2018-08-08 | OP ---
PATIENT NAME: DONNIE BROWN MEDICAL RECORD: [id number] :50 LOCATION:[facility] ADMISSION DATE: SURGEON: HERB STONE MD DATE OF OPERATION: 08/08/2018 PREOPERATIVE DIAGNOSES: 1. Chronic postoperative seroma. 2. Hypertension. POSTOPERATIVE DIAGNOSES: 1. Chronic postoperative seroma. 2. Hypertension. PROCEDURE: Incision and debridement of abdominal wall seroma. SURGEON: Herb Stone MD REPORT OF PROCEDURE: The patient's abdomen was prepped and draped in sterile fashion. Using a previous midline incision, which went around the umbilicus, we opened up the skin to the subcutaneous tissue. As we continued our dissection down through the subcutaneous tissue with electrocautery, we eventually encountered a fluid pocket consistent with the seroma. Cultures were taken x3. The seroma fluid was removed. The seroma fluid did not have an odor and was cloudy in appearance, but was not frandy purulence. We extended the incision where we could see inside of this pocket well. The pocket was large and extended mainly out laterally on each side. We eventually excised the most superior aspect of this fluid pocket down to more normal appearing fatty tissue. This was done using electrocautery. We continued this dissection down to the tissue overlying the fascia. We tried to debride some of this tissue with curettes and also with electrocautery. We eventually got down as far down on tissues as we could before we would do any damage to the fascia. At this point, we irrigated out the wound thoroughly with peroxide and saline solution. Any bleeding that was found was treated with electrocautery. A 19 round Ed drain was inserted through the right lower quadrant into the subcutaneous pocket. Once the drain was laid into position, it was sutured into place with the 3-0 nylon. The subcutaneous tissues were reapproximated to the fascia using multiple interrupted 3-0 Vicryls and the subcutaneous tissues were reapproximated in the midline with interrupted 3-0 Vicryls. The umbilicus was tacked back down to the fascial layer using a single interrupted 3-0 Vicryl. The skin incision was infused with a total of 10 mL of 0.25% Marcaine with epinephrine and then closed with running subcutaneous 5-0 Monocryl. COMPLICATIONS: None. CONDITION: Stable. ANESTHESIA: General endotracheal and local. BLOOD LOSS: 50 mL. TRANSINT:[id number] Voice Confirmation ID: [id number] DOCUMENT ID: [id number] OPERATIVE REPORT [id number] DONNIE BROWN CHRISTIAN MD CC: VENUS HERNÁNDEZ MD [id number] DICTATION DATE: 08/08/18 1153 NUT SHELLER: 08/08/18 1301 [facility] [address] [place] [id number]
[~2018-08-08 08:00] MED LIST changes: -BACTRIM 400-801 TAB PO
[2018-08-08] MEDS ORDERED: BACTRIM 400-801 TAB PO (08:17)
[2018-08-08 08:18] VITALS: BP 150/66; Ht 162.6 cm; Wt 103.6 kg
== END 2018-08-08 14:05 | disposition home or self-care (01) ==
LOC: D.OPS 08:00 → D.PAN 10:15 → D.OPS 10:15
PROVIDERS: Anesthesiology; Surgery
DX: L76.34 Postprocedural seroma of skin and subcutaneous tissue following other procedure (principal); I10 Essential (primary) hypertension; Z01.812 Encounter for preprocedural laboratory examination

== ENCOUNTER → 2018-11-14 11:16 | Outpatient (CLI) | payer BC, MEDICARE ==
[2018-08-08 08:18] VITALS: BMI 39.2
[~2018-11-14 11:16] MED LIST changes: +BACTRIM 400-801 TAB PO
== END | disposition home or self-care (01) ==
LOC: D.HCCARDIO 11:16
PROVIDERS: ATTEND Internal Medicine Cardiovascular Disease
DX: I25.10 Atherosclerotic heart disease of native coronary artery without angina pectoris (principal)

== ENCOUNTER → 2018-12-05 16:56 | Outpatient (CLI) | payer BC, MEDICARE ==
[2018-08-08 08:18] VITALS: BMI 39.2
== END | disposition home or self-care (01) ==
LOC: D.MAMMO 14:45
PROVIDERS: ATTEND Family Medicine
DX: Z12.31 Encounter for screening mammogram for malignant neoplasm of breast (principal)

== ENCOUNTER 2019-01-31 10:08 | Day surgery (SDC) | payer BC, MEDICARE ==
[~2019-01-31] VITALS: Ht 162.6 cm; Wt 105.5 kg
[2019-01-31 10:26] LABS: BASOPHILS 0.2 % (0-2); EOSINOPHILS 0.9 % (0-7); HEMATOCRIT 36.5 % (36.0-48.0); HEMOGLOBIN 12.5 g/dL (12-16); IMMATURE GRANULOCYTES 0.2 % (0-5); LYMPHOCYTES 40.1 % (15-50); MCH 30.6 pg (26.0-34.0); MCHC 34.2 g/dL (31.0-37.0); MCV 89.2 fL (80.0-100.0); MEAN PLATELET VOLUME 9.6 fL (7.4-10.4); MONOCYTES 7.4 % (2-11); NEUTROPHILS 51.2 % (40-80); PLATELET COUNT 240 10x3/uL (130-400); RBC 4.09 10x6/uL (4.00-5.40); RDW 13.8 % (11.5-14.5); WBC 5.4 10x3/uL (4.8-10.8)
[2019-01-31 10:33] LABS: CALC OSMOLALITY 275 mosm/kg (275-300); CALCIUM 8.9 mg/dL (8.5-10.1); CARBON DIOXIDE 25.5 mmol/L (21.0-32.0); CHLORIDE - SERUM 102 mmol/L (98-107); CREATININE - SERUM 0.8 mg/dL (0.6-1.3); GLUCOSE 110 mg/dL (74-106); INR 1.15 (0.85-1.17); POTASSIUM - SERUM 3.4 mmol/L (3.5-5.1); PROTIME 14.2 SECONDS (11.6-15.0); SODIUM 138 mmol/L (136-145); UREA NITROGEN 9 mg/dL (7-18); eGFR NON AFRICAN AMERICAN 75 mL/min (90-120)
[2019-01-31 10:34] LABS: APTT 37.6 SECONDS (22.8-39.4)
[2019-01-31 10:54] VITALS: BP 159/82; Ht 162.6 cm; Wt 105.5 kg
--- NOTE | 2019-01-31 12:58 | NUR ---
1255 DR. REINA RAMON.
--- NOTE | 2019-01-31 13:06 | NUR ---
1305 [place] DIET SERVED.
--- NOTE | 2019-01-31 17:26 | OP ---
PATIENT NAME: DONNIE BROWN MEDICAL RECORD: [id number] :50 LOCATION:[facility] ADMISSION DATE: SURGEON: YRIS HUANG DO DATE OF OPERATION: 01/31/2019 PROCEDURE: Colonoscopy. INDICATIONS FOR PROCEDURE: History of colon cancer diagnosed in 2008, status post right hemicolectomy and chemotherapy. Her last colonoscopy was approximately 2 years ago. SCOPE: Olympus video pediatric colonoscope. MEDICATIONS: Propofol 500 mg IV per anesthesia. WITHDRAWAL TIME: Greater than 10 minutes. ESTIMATED BLOOD LOSS: None. COMPLICATIONS: None. FINDINGS AND DESCRIPTION OF PROCEDURE: Informed consent was given. The patient was made comfortable with the above medication. After reaching an adequate level of sedation by slow IV push, the patient was placed on her left side. A digital rectal examination was performed and was normal. The endoscope was then advanced under direct visualization through the rectum to the ileum. The endoscope was slowly withdrawn and mucosa was carefully examined. The prep quality was good. There was evidence of a prior right hemicolectomy. The anastomosis appeared normal and healthy. The endoscope was advanced beyond the anastomosis into the small intestine which also appeared normal. There were no polyps visualized on today's examination during withdrawal of the endoscope. There were multiple small diverticula without evidence of diverticulitis involving the descending and sigmoid colon. Retroflexion was performed in the rectum with a normal-appearing rectal wall. The endoscope was withdrawn from the patient. The patient tolerated the procedure well and there were no complications. IMPRESSION: 1. Moderate diverticulosis of the descending and sigmoid colon. 2. Evidence of a prior right hemicolectomy. PLAN AND RECOMMENDATIONS: 1. Discharge home when recovery parameters are met. 2. High fiber diet. 3. Continue current medications. 4. Recall colonoscopy in 2-3 years. TRANSINT:[id number] Voice Confirmation ID: [id number] DOCUMENT ID: [id number] OPERATIVE REPORT [id number] DONNIE BROWN YRIS HUANG DO at 1726 CC: [id number] DICTATION DATE: 01/31/19 1246 [facility]: 01/31/19 1255 [facility] 01/31/19 [place] [address]
== END 2019-01-31 13:55 | disposition home or self-care (01) ==
LOC: D.OPS 10:08
PROVIDERS: Anesthesiology; ATTEND Internal Medicine Gastroenterology
DX: K57.30 Diverticulosis of large intestine without perforation or abscess without bleeding (principal); Z85.038 Personal history of other malignant neoplasm of large intestine; Z92.21 Personal history of antineoplastic chemotherapy; Z90.49 Acquired absence of other specified parts of digestive tract; Z01.812 Encounter for preprocedural laboratory examination

== ENCOUNTER 2019-02-10 21:46 | Emergency (ER) | payer BC, MEDICARE ==
[~2019-02-10] VITALS: Ht 162.6 cm; Wt 105.5 kg
[2019-02-10 22:01] VITALS: Ht 162.6 cm; Wt 105.5 kg
[2019-02-10 22:26] LABS: APPEARANCE CLEAR (CLEAR); BASOPHILS 0.2 % (0-2); COLOR YELLOW (YELLOW); EOSINOPHILS 1.1 % (0-7); GLUCOSE NEGATIVE (NEGATIVE); HEMATOCRIT 38.3 % (36.0-48.0); IMMATURE GRANULOCYTES 0.3 % (0-5); KETONE NEGATIVE (NEGATIVE); LYMPHOCYTES 36.4 % (15-50); MCHC 33.9 g/dL (31.0-37.0); MCV 91.2 fL (80.0-100.0); MEAN PLATELET VOLUME 9.8 fL (7.4-10.4); MONOCYTES 5.9 % (2-11); NEUTROPHILS 56.1 % (40-80); NITRITE NEGATIVE (NEGATIVE); PLATELET COUNT 231 10x3/uL (130-400); PROTEIN NEGATIVE (NEGATIVE); RDW 14.1 % (11.5-14.5); SPECIFIC GRAVITY 1.025 (1.005-1.020); WBC 6.5 10x3/uL (4.8-10.8)
[2019-02-10 22:27] LABS: BILIRUBIN NEGATIVE (NEGATIVE); UROBILINOGEN NORMAL (NORMAL)
[2019-02-10 22:29] LABS: RED CELLS - URINE 0-5 /hpf (0-5); WHITE CELLS - URINE 0-5 /hpf (0-5)
[2019-02-10 22:30] LABS: BACTERIA FEW /hpf (NONE SEEN); EPITHELIAL CELLS 0-5 /hpf (0-5)
[2019-02-10 22:36] LABS: ALBUMIN 4.3 g/dL (3.4-5.0); ALKALINE PHOSPHATASE 68 U/L (46-116); ALT (SGPT) 21 U/L (10-68); BILIRUBIN - TOTAL 0.59 mg/dL (0.2-1.3); CALC OSMOLALITY 284 mosm/kg (275-300); CALCIUM 9.8 mg/dL (8.5-10.1); CARBON DIOXIDE 24.4 mmol/L (21.0-32.0); CHLORIDE - SERUM 105 mmol/L (98-107); CREATININE - SERUM 0.8 mg/dL (0.6-1.3); GLUCOSE 115 mg/dL (74-106); POTASSIUM - SERUM 3.8 mmol/L (3.5-5.1); PROTEIN - SERUM 8.7 g/dL (6.4-8.2); SODIUM 142 mmol/L (136-145); UREA NITROGEN 16 mg/dL (7-18); eGFR NON AFRICAN AMERICAN 75 mL/min (90-120)
[2019-02-10 22:40] LABS: AMYLASE - SERUM 42 U/L (25-115); LIPASE 96 U/L (73-393); TROPONIN-I < 0.017 ng/mL (0.000-0.060)
[2019-02-11] MEDS ORDERED: DILAUDID4 MG PO (00:26)
[2019-02-11 00:59] VITALS: BP 126/63
== END 2019-02-11 00:59 | disposition home or self-care (01) ==
LOC: D.ER 21:46
PROVIDERS: Emergency Medicine
DX: R10.9 Unspecified abdominal pain (principal)

== ENCOUNTER → 2019-05-16 10:26 | Outpatient (CLI) | payer MEDICARE ==
[2019-02-10 22:01] VITALS: BMI 39.9
[~2019-05-16 10:26] MED LIST changes: +DILAUDID4 MG PO
== END | disposition home or self-care (01) ==
LOC: D.US 10:26
PROVIDERS: ATTEND Orthopaedic Surgery
DX: R22.42 Localized swelling, mass and lump, left lower limb (principal)

== ENCOUNTER → 2020-10-27 15:25 | Outpatient (CLI) | payer MEDICARE ==
[2019-02-10 22:01] VITALS: BMI 39.9
== END | disposition home or self-care (01) ==
LOC: D.CT 15:25
PROVIDERS: ATTEND Family Medicine
DX: F07.81 Postconcussional syndrome (principal); R51.9 Headache, unspecified